=== PATIENT | female | born 1950 | race Hispanic/Latino ===

== ENCOUNTER 2024-12-14 16:52 | Emergency (ER) | payer OTHER ==
--- OUTSIDE RECORDS SUMMARY | 2024-12-14 16:57 | XMS REPORT | Continuity of Care Document ---
Author Name Unknown Address [address] [place] [address] Organization [facility] [place] Address [address] [place] [address] Care Team Providers Care Burial Agent Name Role Phone Navya Hdez Primary Care Physician [phone] oCrky Romero Attending Clinician Unavailable Martha Patel Attending Clinician Unavailable Navya Hdez L Attending Clinician Unavailable Benjamin Hernandez DPM Attending Clinician [phone] BENJAMIN HERNANDEZ Attending Clinician Unavail able Radiology Attending Clinician Unavailable RADIOLOGY Attending Clinician Unavailable Doctor Unassigned, [place] Attending Clinician U JASWINDER Benitez Attending Clinician [facility] Attending Clinician Jaswinder Mitchell MD Attending Clinician [phone] BENJAMIN HERNANDEZitting Clinician Unavailable NAVYA HDEZ Admitting Clinician Unavailable Payers Payer Name Policy Type Policy Number Effective Date Expirati on Date Source [employer] [employer] [place] [id number] 2014 00:00:00 Problems Condition Name Condition Details Condition Category Status Onset Date Resolution Date Last Treatment Date Treating Clinician Comments Source [id number] Stage 3a chronic kidney disease (CKD) Problem Common [facility] [id number] Body mass index [BMI] 40.0-44.9, adult Problem Common [facility] [id number] Morbid (severe) obesity due to excess calories Problem [facility] [id number] Mixed hyperlipid emia Problem [facility] [id number] Pain in left knee Problem [facility] [id number] Other chronic pain Problem [facility] Metabolic syndrome X Metabolic syndrome X Problem [facility] [id number] Obesity, morbid, BMI 40.0-49.9 Problem [facility] Hypertrigl yceridemia Hypertrigl yceridemia Problem [facility] Obese Obese Problem [facility] [id number] Osteoarthr itis of multiple joints, unspecifie d osteoarthr itis type Problem [facility] Hyperlipid emia Hyperlipid emia Problem [facility] [id number] White coat syndrome with diagnosis of hypertensi on Problem [facility] [id number] Pneumococc al vaccinatio n administer ed at current visit Problem [facility] [id number] History of anemia Problem [facility] [id number] History of colon polyps Problem [facility] [id number] +5th digit eff 05/29/20*Ch ronic kidney disease, stage III (moderate) Problem [facility] Elevated levels of transamina se & lactic acid dehydrogen ase Abnormal AST and ALT Problem [facility] Osteoarthr itis of knee Primary osteoarthr itis of right knee Problem [facility] Chronic fatigue syndrome Chronic fatigue Problem [facility] [id number] Hepatitis A antibody positive Problem [facility] 327051472 Prediabete s Problem [facility] [id number] Hypertensi ve chronic kidney disease with stage 1 through stage 4 chronic kidney disease, or unspecifie d chronic kidney disease Problem [facility] [id number] Fatty liver Problem [facility] [id number] Abnormal mammogram Problem [facility] Allergies, Adverse Reactions, Alerts Allergy Name Allergy Type Status Severity Reaction(s) Onset Date Inactive Date Treating Clinician Comments Source OTHER Allergy Active Med Rash 02-07 00:00: 00 [facility] OTHER Allergy Active Med Rash 02-07 00:00: 00 [facility] OTHER Allergy Active Med Rash 02-07 00:00: 00 [facility] OTHER Allergy Active Med Rash 02-07 00:00: 00 [facility] OTHER Allergy Active Med Rash 02-07 00:00: 00 [facility] OTHER Allergy Active Med Rash 02-07 00:00: 00 [facility] Other Propensi ty to adverse reaction s Active Rash 02-07 00:00: 00 Plastic Jim Alcaraz Latex Latex Active Unknown [facility] NO KNOWN ALLERGIE S Drug Class Active [facility] ALLERGIE S NOT ON FILE SYSTEMIC Active [facility] ALLERGIE S NOT ON FILE SYSTEMIC Active [facility] Social History Social Habit Start Date Stop Date Quantity Comments Source Gender identity 2023-11-20 15:39:33 Identifies as female gender (finding) Pete Murry [facility] Exposure to SARS-CoV-2 (event) Not sure [facility] History of Tobacco Use [facility] Sex Assigned At [facility] ASSERTION Possible [facility]marie [facility] Sexual orientation [facility] Smoking Status Start Date Stop Date Source Tobacco smoking consumption unknown [facility] c Never Smoker [facility] Medications Ordered Medication Name Filled Medication Name Start Date Stop Date Current Medication? Ordering Clinician Indication Dosage Frequency Signature (SIG) Comments Components Source Macrobid 100 MG Macrobid 100 MG 2023-08 014 00:00: 00 No 1{capsu le_with _food} BID Macrobid 100 MG ketoconazol e (NIZOral) 2 % cream ketoconazol e (NIZOral) 2 % cream 02-08 00:00: 00 02-08 00:00 :00 No APPLY CREAM TOPICALLY ONCE DAILY TO AFFECTED AREA Jim Alcaraz lisinopril- hydroCHLORO thiazide 20-25 MG tablet lisinopril- hydroCHLORO thiazide 20-25 MG tablet 02-07 09:54: 09 Yes 1{tbl} QD Take 1 tablet by mouth 1 time each day. Jim Alcaraz rosuvastati n (Crestor) 10 MG tablet rosuvastati n (Crestor) 10 MG tablet 02-07 09:54: 09 Yes 10mg QD Take 10 mg by mouth 1 time each day. Jim Alcaraz coenzyme Q-10 50 MG capsule coenzyme Q-10 50 MG capsule 02-07 09:54: 09 Yes Take by mouth. Jim Alcaraz omega-3 (Fish Oil) 500 MG capsule omega-3 (Fish Oil) 500 MG capsule 02-07 09:54: 09 Yes 500mg QD Take 500 mg by mouth 1 time each day. Jim Alcaraz psyllium (Metamucil) 28 % packet psyllium (Metamucil) 28 % packet 02-07 09:54: 09 Yes 1{packe t} Q.5D Take 1 packet by mouth in the morning and 1 packet in the evening. Mix and drink with at least 8 ounces of water or juice.. Jim Alcaraz calcium citrate-vit benavidez D 250-2.5 MG-MCG tablet calcium citrate-vit benavidez D 250-2.5 MG-MCG tablet 02-07 09:54: 09 Yes 1{tbl} Q.5D Take 1 tablet by mouth in the morning and 1 tablet in the evening. Jim Alcaraz TURMERIC-FI SH OIL PO TURMERIC-FI SH OIL PO 02-07 09:54: 09 Yes Take by mouth. Jim Alcaraz ketoconazol e (NIZOral) 2 % cream ketoconazol e (NIZOral) 2 % cream 02-07 00:00: 00 02-08 00:00 :00 No QD Apply topically 1 time each day. Jim Alcaraz Hyalgan 20 mg Hyalgan 20 mg 2019-08 00:00: 00 No 20mg [facility] Bupivicaine [place] Bupivicaine [place] 2019-08 015 00:00: 00 No 5mg [facility] Kenalog (Triamcinol one) Kenalog (Triamcinol one) 2020-1 0-15 00:00: 00 No 40mg [facility] CoQ-10 CoQ-10 No CoQ-10 Rosuvastati n Calcium 10 mg Rosuvastati n Calcium 10 mg No 1{table t} QD Rosuvastat in Calcium 10 mg Aspirin Adult Low Dose 81 MG Aspirin Adult Low Dose 81 MG No 1{table t} QD Aspirin Adult Low Dose 81 MG Immunizations Ordered Immunization Name Filled Immunization Name Date Status Comments Source SARS-COV-2 COVID-19 PFIZER VACCINE 2020-10-23 00:00:00 Completed [facility] SARS-COV-2 COVID-19 PFIZER VACCINE 2020-10-23 00:00:00 Completed [facility] SARS-COV-2 COVID-19 PFIZER VACCINE 2020-10-23 00:00:00 Completed [facility] SARS-COV-2 COVID-19 PFIZER VACCINE 2020-10-23 00:00:00 Completed [facility] SARS-COV-2 COVID-19 PFIZER VACCINE 2020-10-23 00:00:00 Completed [facility] SARS-COV-2 COVID-19 PFIZER VACCINE 2020-10-23 00:00:00 Completed [facility] SARS-COV-2 COVID-19 PFIZER VACCINE 2020-10-23 00:00:00 Completed [facility] SARS-COV-2 COVID-19 PFIZER VACCINE 2020-10-23 00:00:00 Completed [facility] SARS-COV-2 COVID-19 PFIZER VACCINE 2020-10-23 00:00:00 Completed [facility] SARS-COV-2 COVID-19 PFIZER VACCINE 2020-10-23 00:00:00 Completed [facility] SARS-COV-2 COVID-19 PFIZER VACCINE 2020-10-23 00:00:00 Completed [facility] SARS-COV-2 COVID-19 PFIZER VACCINE 2020-10-23 00:00:00 Completed [facility] SARS-COV-2 COVID-19 PFIZER VACCINE 2020-10-23 00:00:00 Completed [facility] SARS-COV-2 COVID-19 PFIZER VACCINE 2020-09-23 00:00:00 Completed [facility] SARS-COV-2 COVID-19 PFIZER VACCINE 2020-09-23 00:00:00 Completed [facility] SARS-COV-2 COVID-19 PFIZER VACCINE 2020-09-23 00:00:00 Completed [facility] SARS-COV-2 COVID-19 PFIZER VACCINE 2020-09-23 00:00:00 Completed [facility] SARS-COV-2 COVID-19 PFIZER VACCINE 2020-09-23 00:00:00 Completed [facility] SARS-COV-2 COVID-19 PFIZER VACCINE 2020-09-23 00:00:00 Completed [facility] SARS-COV-2 COVID-19 PFIZER VACCINE 2020-09-23 00:00:00 Completed [facility] SARS-COV-2 COVID-19 PFIZER VACCINE 2020-09-23 00:00:00 Completed [facility] SARS-COV-2 COVID-19 PFIZER VACCINE 2020-09-23 00:00:00 Completed [facility] SARS-COV-2 COVID-19 PFIZER VACCINE 2020-09-23 00:00:00 Completed [facility] SARS-COV-2 COVID-19 PFIZER VACCINE 2020-09-23 00:00:00 Completed [facility] SARS-COV-2 COVID-19 PFIZER VACCINE 2020-09-23 00:00:00 Completed [facility] SARS-COV-2 COVID-19 PFIZER VACCINE 2020-09-23 00:00:00 Completed [facility] Pneumovax (PPSV23) Pneumovax (PPSV23) 2018-07-13 09:03:00 Completed [facility] Pneumovax (PPSV23) Pneumovax (PPSV23) 2018-07-13 09:03:00 Completed [facility] Pneumovax (PPSV23) Pneumovax (PPSV23) 2018-07-13 09:03:00 Completed [facility] Pneumovax (PPSV23) Pneumovax (PPSV23) 2018-07-13 09:03:00 Completed [facility] Pneumovax (PPSV23) Pneumovax (PPSV23) 2018-07-13 09:03:00 Completed [facility] Pneumovax (PPSV23) Pneumovax (PPSV23) 2018-07-13 09:03:00 Completed [facility] Pneumovax (PPSV23) Pneumovax (PPSV23) 2018-07-13 09:03:00 Completed [facility] Pneumovax (PPSV23) Pneumovax (PPSV23) 2018-07-13 09:03:00 Completed [facility] Pneumovax (PPSV23) Pneumovax (PPSV23) 2018-07-13 09:03:00 Completed [facility] Pneumovax (PPSV23) Pneumovax (PPSV23) 2018-07-13 09:03:00 Completed [facility] Pneumovax Pneumovax 2018-07-13 00:00:00 Completed [facility] SARS-COV-2 COVID-19 PFIZER VACCINE Unknown Completed [facility] SARS-COV-2 COVID-19 PFIZER VACCINE Unknown Completed [facility] Pneumovax (PPSV23) Pneumovax (PPSV23) Unknown Completed [facility] Pneumovax (PPSV23) Pneumovax (PPSV23) Unknown Completed [facility] Pneumovax (PPSV23) Pneumovax (PPSV23) Unknown Completed [facility] Pneumovax (PPSV23) Pneumovax (PPSV23) Unknown Completed [facility] Pneumovax (PPSV23) Pneumovax (PPSV23) Unknown Completed [facility] Pneumovax (PPSV23) Pneumovax (PPSV23) Unknown Completed [facility] Pneumovax (PPSV23) Pneumovax (PPSV23) Unknown Completed [facility] Pneumovax (PPSV23) Pneumovax (PPSV23) Unknown Completed [facility] Pneumovax (PPSV23) Pneumovax (PPSV23) Unknown Completed [facility] Vital Signs Vital Name Observation Time Observation Value Comments S ource height 2024-10-12 08:45:00 60.00 [in_i] Com [facility] weight 2024-10-12 08:45:00 203 [lb_av] Comm on [facility] temperature 2024-10-12 08:45:00 97.3 [degF] Com [facility] bmi 2024-10-12 08:45:00 39.64 kg/m2 Comm on [facility] oximetry 2024-10-12 08:45:00 98 % Commo n [facility] heart rate 2024-10-12 08:45:00 63 /min Commo n [facility] respiratory rate 2024-10-12 08:45:00 18 /min [facility] blood pressure systolic 2024-10-12 08:45:00 128 mm[Hg] [facility] blood pressure diastolic 2024-10-12 08:45:00 74 mm[Hg] [facility] height 2024-06-11 09:00:00 60.00 [in_i] Com [facility] weight 2024-06-11 09:00:00 202.0 [lb_av] Co mmon [facility] temperature 2024-06-11 09:00:00 97.3 [degF] Com [facility] bmi 2024-06-11 09:00:00 39.45 kg/m2 Comm on [facility] oximetry 2024-06-11 09:00:00 95 % Commo n [facility] respiratory rate 2024-06-11 09:00:00 17 /min [facility] blood pressure systolic 2024-06-11 09:00:00 128 mm[Hg] [facility] blood pressure diastolic 2024-06-11 09:00:00 69 mm[Hg] Common [facility] height 2024-06-11 09:00:00 60.00 [in_i] Com [facility] weight 2024-06-11 09:00:00 202.0 [facility]lb[facility]11 09:00:00 97.3 [degF] Com [facility] bmi 2024-06-11 09:00:00 39.45 kg/m2 Comm on [facility] oximetry 2024-06-11 09:00:00 95 % Commo n [facility] respiratory rate 2024-06-11 09:00:00 17 /min [facility] blood pressure systolic 2024-06-11 09:00:00 128 mm[Hg] Common [facility] blood pressure diastolic 2024-06-11 09:00:00 69 mm[Hg] Common [facility] height 2024-06-11 09:00:00 60.00 [in_i] Com [facility] weight 2024-06-11 09:00:00 202.0 [lb_av] Co [facility] temperature 2024-06-11 09:00:00 97.3 [degF] Com [facility] bmi 2024-06-11 09:00:00 39.45 kg/m2 Comm on [facility] oximetry 2024-06-11 09:00:00 95 % Commo n [facility] respiratory rate 2024-06-11 09:00:00 17 /min Common [facility] blood pressure systolic 2024-06-11 09:00:00 128 mm[Hg] [facility] blood pressure diastolic 2024-06-11 09:00:00 69 mm[Hg] [facility] height 2024-06-11 09:00:00 60.00 [in_i] Com [facility] weight 2024-06-11 09:00:00 202.0 [lb_av] Co mmon [facility] temperature 2024-06-11 09:00:00 97.3 [degF] Com [facility] bmi 2024-06-11 09:00:00 39.45 kg/m2 Comm on [facility] oximetry 2024-06-11 09:00:00 95 % Commo n [facility] respiratory rate 2024-06-11 09:00:00 17 /min Common [facility] blood pressure systolic 2024-06-11 09:00:00 128 mm[Hg] Common [facility] blood pressure diastolic 2024-06-11 09:00:00 69 mm[Hg] [facility] height 2024-02-08 08:40:00 60.00 [in_i] Com [facility] weight 2024-02-08 08:40:00 211.4 [lb_av] Co [facility] temperature 2024-02-08 08:40:00 96.2 [degF] Com [facility] bmi 2024-02-08 08:40:00 41.28 kg/m2 Comm on [facility] oximetry 2024-02-08 08:40:00 97 % Commo n [facility] blood pressure systolic 2024-02-08 08:40:00 134 mm[Hg] Common [facility] blood pressure diastolic 2024-02-08 08:40:00 74 mm[Hg] Common [facility] height 2023-10-11 08:50:00 60.00 [in_i] Com [facility] weight 2023-10-11 08:50:00 215 [lb_av] Comm on [facility] temperature 2023-10-11 08:50:00 97.5 [degF] Com [facility] bmi 2023-10-11 08:50:00 41.98 kg/m2 Comm on [facility] oximetry 2023-10-11 08:50:00 97 % Commo n [facility] blood pressure systolic 2023-10-11 08:50:00 130 mm[Hg] [facility] blood pressure diastolic 2023-10-11 08:50:00 74 mm[Hg] [facility] height 2023-06-09 09:20:00 60.00 [in_i] Com [facility] weight 2023-06-09 09:20:00 212.0 [lb_av] Co [facility] temperature 2023-06-09 09:20:00 97.2 [degF] Com [facility] bmi 2023-06-09 09:20:00 41.4 kg/m2 Commo n [facility] oximetry 2023-06-09 09:20:00 98 % Commo n [facility] respiratory rate 2023-06-09 09:20:00 18 /min [facility] blood pressure systolic 2023-06-09 09:20:00 130 mm[Hg] [facility] blood pressure diastolic 2023-06-09 09:20:00 71 mm[Hg] [facility] height 2023-06-09 09:20:00 60.00 [in_i] Com [facility] weight 2023-06-09 09:20:00 212.0 [lb_av] Co [facility] temperature 2023-06-09 09:20:00 97.2 [degF] Com [facility] bmi 2023-06-09 09:20:00 41.4 kg/m2 Commo n [facility] oximetry 2023-06-09 09:20:00 98 % Commo n [facility] respiratory rate 2023-06-09 09:20:00 18 /min [facility] blood pressure systolic 2023-06-09 09:20:00 130 mm[Hg] [facility] blood pressure diastolic 2023-06-09 09:20:00 71 mm[Hg] Common [facility] height 2023-02-07 08:40:00 60.00 [in_i] Com [facility] weight 2023-02-07 08:40:00 208 [lb_av] Comm on [facility] temperature 2023-02-07 08:40:00 96.2 [degF] Com [facility] bmi 2023-02-07 08:40:00 40.62 kg/m2 Comm on [facility] oximetry 2023-02-07 08:40:00 97 % Commo n [facility] respiratory rate 2023-02-07 08:40:00 16 /min [facility] blood pressure systolic 2023-02-07 08:40:00 134 mm[Hg] Common [facility] blood pressure diastolic 2023-02-07 08:40:00 72 mm[Hg] [facility] height 2022-09-30 09:00:00 60.00 [in_i] Com [facility] weight 2022-09-30 09:00:00 203.4 [lb_av] Co mmon [facility] temperature 2022-09-30 09:00:00 97.6 [degF] Com [facility] bmi 2022-09-30 09:00:00 39.72 kg/m2 Comm on [facility] oximetry 2022-09-30 09:00:00 100 % Commo n [facility] respiratory rate 2022-09-30 09:00:00 17 /min [facility] blood pressure systolic 2022-09-30 09:00:00 121 mm[Hg] [facility] blood pressure diastolic 2022-09-30 09:00:00 73 mm[Hg] Common [facility] height 2022-07-16 10:20:00 60.00 [in_i] Com [facility] weight 2022-07-16 10:20:00 199 [lb_av] Comm on [facility] bmi 2022-07-16 10:20:00 38.86 kg/m2 Comm on [facility] height 2022-06-15 16:00:00 60.00 [in_i] Com [facility] weight 2022-06-15 16:00:00 199.9 [lb_av] Co [facility] temperature 2022-06-15 16:00:00 97.0 [degF] Com [facility] bmi 2022-06-15 16:00:00 39.04 kg/m2 Comm on [facility] oximetry 2022-06-15 16:00:00 99 % Commo n [facility] respiratory rate 2022-06-15 16:00:00 17 /min [facility] blood pressure systolic 2022-06-15 16:00:00 148 mm[Hg] Common [facility] blood pressure diastolic 2022-06-15 16:00:00 72 mm[Hg] [facility] height 2022-06-15 16:20:00 60.00 [in_i] Com [facility] weight 2022-06-15 16:20:00 199.9 [lb_av] Co on [facility] temperature 2022-06-15 16:20:00 97.0 [degF] Com [facility] bmi 2022-06-15 16:20:00 39.04 kg/m2 Comm on [facility] oximetry 2022-06-15 16:20:00 99 % Commo n [facility] blood pressure systolic 2022-06-15 16:20:00 148 mm[Hg] Common [facility] blood pressure diastolic 2022-06-15 16:20:00 72 mm[Hg] [facility] height 2021-11-23 09:20:00 60.00 [in_i] Com [facility] weight 2021-11-23 09:20:00 204.2 [lb_av] Co mmon [facility] temperature 2021-11-23 09:20:00 97.2 [degF] Com [facility] bmi 2021-11-23 09:20:00 39.88 kg/m2 Comm on [facility] oximetry 2021-11-23 09:20:00 96 % Commo n [facility] respiratory rate 2021-11-23 09:20:00 16 /min [facility] blood pressure systolic 2021-11-23 09:20:00 114 mm[Hg] [facility] blood pressure diastolic 2021-11-23 09:20:00 68 mm[Hg] Common [facility] height 2021-10-27 09:40:00 60.00 [in_i] Com [facility] weight 2021-10-27 09:40:00 204 [lb_av] Comm on [facility] temperature 2021-10-27 09:40:00 97.6 [degF] Com [facility] bmi 2021-10-27 09:40:00 39.84 kg/m2 Comm on [facility] oximetry 2021-10-27 09:40:00 97 % Commo n [facility] respiratory rate 2021-10-27 09:40:00 18 /min Common [facility] blood pressure systolic 2021-10-27 09:40:00 117 mm[Hg] [facility] blood pressure diastolic 2021-10-27 09:40:00 69 mm[Hg] [facility] height 2021-08-13 08:20:00 60.00 [in_i] Com mon [facility] weight 2021-08-13 08:20:00 209 [lb_av] Comm on [facility] temperature 2021-08-13 08:20:00 97.2 [degF] Com mon [facility] bmi 2021-08-13 08:20:00 40.81 kg/m2 Comm on [facility] oximetry 2021-08-13 08:20:00 99 % Commo n [facility] blood pressure systolic 2021-08-13 08:20:00 130 mm[Hg] [facility] blood pressure diastolic 2021-08-13 08:20:00 68 mm[Hg] Common [facility] Procedures Procedure Date / Time Performed Performing Clinician Source BI SCREENING TOMOSYNTHESIS BILATERAL 2023-08-04 14:35:55 Corky Romero [facility] DEXA AXIAL (HIP AND SPINE) 2023-08-04 14:18:17 Corky Romero [facility] XR FOOT <3 VW RIGHT 2022-11-18 15:53:59 [place] [facility] XR HEEL 2+ VW RIGHT 2022-11-18 15:53:59 [facility] ASSIGNMENT OF BENEFITS 2022-11-18 15:16:35 Docto r Unassigned, [place] [facility] MR ANKLE RIGHT WO CONTRAST 2022-09-07 15:17:00 Benjamin Hernandez [facility] XR FOOT 3+ VW BILATERAL 2022-08-31 18:06:01 Araceli Hernandez [facility] XR HEEL 2+ VW BILATERAL 2022-08-31 18:06:01 Araceli Hernandez [facility] ASSIGNMENT OF BENEFITS 2022-08-31 17:33:30 Docto r Unassigned, [place] [facility] AUTHORIZATION FOR RELEASE OF PHI 2022-08-30 06:01:00 Doctor Unassigned, [place] [facility] XR FOOT <3 VW RIGHT 2022-06-17 16:13:24 Navya Hdez U [facility] ASSIGNMENT OF BENEFITS 2022-06-17 15:49:41 Docto r Unassigned, [place] [facility] BI DIAGNOSTIC TOMOSYNTHESIS LEFT 2022-05-25 14:02:35 Requisition, Paper [facility] CONSENT/REFUSAL FOR DIAGNOSIS AND TREATMENT 2022-05-25 13:28:25 Doctor Unassigned, [place] [facility] ASSIGNMENT OF BENEFITS 2022-05-25 13:27:51 Docto r Unassigned, [place] [facility] DEXA AXIAL (HIP AND SPINE) 2021-10-01 19:22:58 Self Referred, Facility Npi [facility] Encounters Start Date/Time End Date/Time Encounter Type Admission Type Attending Clinicians Care Facility Care Department Encounter ID Source 2024-09-11 13:00:00 Outpatient NickSegundoh STLMLC STLMLC [id number] [facility] 2023-06-08 13:35:00 Outpatient NickCorky STLMLC STLMLC [id number] [facility] 2022-10-05 09:31:01 Outpatient Amanda Martha STLMLC STLMLC [id number] [facility] 2022-09-29 09:11:00 Outpatient Amanda Martha STLMLC STLMLC [id number] [facility] 2022-09-22 13:19:00 Outpatient Amanda Martha STLMLC STLMLC [id number] [facility] 2022-07-14 11:23:00 Outpatient Navya Hdez STLMLC STLMLC [id number] [facility] 2022-07-05 10:26:02 Outpatient Navya Hdez STLMLC STLMLC [id number] [facility] 2022-06-11 08:14:00 Outpatient Navya Hdez STLMLC STLMLC [id number] [facility] 2022-04-16 09:36:01 Outpatient Hdez, Na STLMLC STLMLC [id number] [facility] 2022-03-08 14:51:00 Outpatient Hdez, Na STLMLC STLMLC [id number] [facility] 2021-10-27 09:15:01 Outpatient Hdez, Na STLMLC STLMLC [id number] [facility] 2021-10-26 09:58:00 Outpatient Hdez, Na STLMLC STLMLC [id number] [facility] 2021-09-23 14:28:59 Outpatient Hdez, Na STLMLC STLMLC [id number] [facility] 2021-09-23 14:24:20 Outpatient Hdez, Na STLMLC STLMLC [id number] [facility] 2021-09-23 13:15:23 Outpatient Hdez, Na STLMLC STLMLC [id number] [facility] 2021-09-23 12:42:27 Outpatient Hdez, Na STLMLC STLMLC [id number] [facility] 2021-09-23 12:39:45 Outpatient Hdez, Na STLMLC STLMLC [id number] [facility] 2021-09-23 12:16:10 Outpatient Hdez, Na STLMLC STLMLC [id number] [facility] 2021-09-23 12:13:31 Outpatient Hdez, Na STLMLC STLMLC [id number] [facility] 2021-09-23 12:12:46 Outpatient Hdez, Na STLMLC STLMLC [id number] [facility] 2021-09-23 12:02:50 Outpatient Hdez, Na STLMLC STLMLC [id number] [facility] 2021-09-23 12:02:33 Outpatient Hdez, Na STLMLC STLMLC [id number] [facility] 2021-09-23 11:55:37 Outpatient Hdez, Na STLMLC STLMLC [id number] [facility] 2021-09-23 11:54:04 Outpatient Hdez, Na STLMLC STLMLC [id number] [facility] 2021-09-23 11:50:47 Outpatient Hdez, Na STLMLC STLMLC [id number] [facility] 2021-09-23 11:43:48 Outpatient Hdez, Na STLMLC STLMLC [id number] [facility] 2021-09-23 11:22:56 Outpatient Hdez, Na STLMLC STLMLC [id number] [facility] 2021-09-23 11:15:43 Outpatient Hdez, Na STLMLC STLMLC [id number] [facility] 2024-10-12 00:00:00 2024-10-12 00:00:00 OFFICE VISIT ESTAB PT LEVEL 4 STLMLC STLMLC [id number] [facility] 2024-09-11 00:00:00 2024-09-11 00:00:00 (TEL) STLMLC STLMLC [id number] [facility] 2024-09-02 00:00:00 2024-09-02 00:00:00 (TEL) STLMLC STLMLC [id number] [facility] 2024-06-27 11:20:00 2024-06-27 11:30:00 [facility] 1.2.840.114 350.1.13.70 8.2.7.2.686 [id number] Jim adler [facility] 2024-06-27 09:52:25 2024-06-27 11:00:28 Outpatient Elective SELBSTBENJAMIN MHEOUT [id number] [facility] 2024-06-11 00:00:00 2024-06-11 00:00:00 OFFICE VISIT ESTAB PT LEVEL 4 [facility] [id number] [facility] 2024-06-11 00:00:00 2024-06-11 00:00:00 SUB ANNUAL [facility] WELLNESS VISIT [facility] [id number] [facility] 2024-05-28 00:00:00 2024-05-28 00:00:00 (TEL) [facility] [id number] [facility] 2024-04-04 09:45:34 2024-04-04 10:48:36 Outpatient Elective SELBENJAMIN CANNON EOUT [id number] [facility] 2024-04-04 10:10:00 2024-04-04 10:20:00 Office Visit Benjamin [facility] 1..840.114 350.1.13.70 8.2.7.2.686 [id number] Jim adler [facility] 2024-02-09 00:00:00 2024-03-11 23:47:50 Orders Only Benjamin Hernandez [facility] 1..840.114 350.1.13.70 8.2.7.2.686 [id number] Jim adler [facility] 2024-02-09 00:00:00 2024-02-09 16:50:28 Refill Benjamin Hernandez [facility] 1..840.114 350.1.13.70 8.2.7.2.686 [id number] Jim adler [facility] 2024-02-08 00:00:00 2024-02-09 14:28:43 Refill BarbarapingBenjamin [facility] 1.2.840.114 350.1.13.70 8.2.7.2.686 [id number] Jim Murry [facility] 2024-02-08 09:50:00 2024-02-08 10:59:20 Office Visit BarbarapingBenjamin [facility] 1.2840.114 350.1.13.70 8.2.7.2.686 [id number] Jim adler [facility] 2024-02-08 09:47:16 2024-02-08 10:59:20 Outpatient Elective BENJAMIN HERNANDEZ MHEOUT [facility] [id number] [facility] 2024-02-08 00:00:00 2024-02-08 00:00:00 OFFICE VISIT ESTAB PT LEVEL 4 [facility] STLMLC [id number] [facility] 2023-11-01 00:00:00 2023-11-01 00:00:00 (TEL) STLMLC STLMLC [id number] [facility] 2023-10-11 00:00:00 2023-10-11 00:00:00 OFFICE VISIT ESTAB PT LEVEL 4 STLMLC STLMLC [id number] [facility] 2023-08-04 07:54:12 2023-08-04 23:59:00 Hospital Encounter Radiology [facility] 1.2840.114 350.1.13.10 4.2.7.2.686 [id number] [facility] 2023-08-04 07:54:04 2023-08-04 23:59:00 Outpatient R RADIOLOGY [facility] [id number] [facility] 2023-08-04 07:54:04 2023-08-04 23:59:00 Hospital Encounter Radiology [facility] 1.2.840.114 350.1.13.10 4.2.7.2.686 [id number] [facility] 2023-06-09 00:00:00 2023-06-09 00:00:00 OFFICE VISIT ESTAB PT LEVEL 4 STLMLC STLMLC [id number] [facility] 2023-06-09 00:00:00 2023-06-09 00:00:00 SUB ANNUAL [facility] WELLNESS VISIT STLMLC STLMLC [id number] [facility] 2023-02-08 00:00:00 2023-02-08 00:00:00 (TEL) STLMLC STLMLC [id number] [facility] 2023-02-07 00:00:00 2023-02-07 00:00:00 OFFICE VISIT ESTAB PT LEVEL 4 STLMLC STLMLC [id number] [facility] 2023-01-05 00:00:00 2023-01-05 00:00:00 (TEL) STLMLC STLMLC [id number] [facility] 2022-12-28 00:00:00 2022-12-28 00:00:00 (TEL) STLMLC STLMLC [id number] [facility] 2022-11-18 10:17:40 2022-11-18 23:59:00 Outpatient R RADIOLOGY [facility] [id number] [facility] 2022-11-18 10:17:40 2022-11-18 23:59:00 Hospital Encounter Radiology [facility] 1.2.840.114 350.1.13.10 4.2.7.2.686 [id number] [facility] 2022-11-18 00:00:00 2022-11-18 00:00:00 Orders Only Doctor Unassigned, [place] [facility] 1.2.840.114 350.1.13.10 4.2.7.2.686 [id number] [facility] 2022-10-05 00:00:00 2022-10-05 00:00:00 (TEL) STLMLC STLMLC [id number] [facility] 2022-09-30 00:00:00 2022-09-30 00:00:00 OFFICE VISIT ESTAB PT LEVEL 4 STLMLC STLMLC [id number] [facility] 2022-09-22 00:00:00 2022-09-22 00:00:00 (TEL) STLMLC STLMLC [id number] [facility] 2022-09-17 00:00:00 2022-09-17 00:00:00 (TEL) STLMLC STLMLC [id number] [facility] 2022-09-14 13:40:52 2022-09-14 23:59:00 Outpatient R JASWINDER REYES [facility] [id number] [facility] 2022-09-14 14:15:00 2022-09-14 14:30:00 Pier Runner Visit Pob, Adc Lab Main Jaswinder Reyes [facility] 1..840.114 350.1.13.10 4.2.7.2.686 [id number] [facility] 2022-09-07 08:29:10 2022-09-07 23:59:00 Outpatient R RADIOLOGY [facility] [id number] [facility] 2022-09-07 08:29:10 2022-09-07 23:59:00 Hospital Encounter Radiology [facility] 1.2.840.114 350.1.13.10 4.2.7.2.686 [id number] [facility] 2022-08-31 11:34:08 2022-08-31 23:59:00 Outpatient R RADIOLOGY [facility] [id number] [facility] 2022-08-31 11:34:08 2022-08-31 23:59:00 Hospital Encounter Radiology [facility] 1.2840.114 350.1.13.10 4.2.7.2.686 [id number] [facility] 2022-08-31 00:00:00 2022-08-31 00:00:00 Orders Only Doctor Unassigned, [place] [facility] 1.2.840.114 350.1.13.10 4.2.7.2.686 [id number] [facility] 2022-08-30 00:00:00 2022-08-30 00:00:00 Orders Only Doctor Unassigned, [place] [facility] 1.2.840.114 350.1.13.10 4.2.7.2.686 [id number] [facility] 2022-07-16 00:00:00 2022-07-16 00:00:00 OL DIG E[facility]M [facility] [id number] [facility] 2022-07-05 00:00:00 2022-07-05 00:00:00 (TEL) [facility] [id number] [facility] 2022-06-17 10:51:24 2022-06-17 23:59:00 Outpatient R RADIOLOGY [facility] [id number] [facility] 2022-06-17 10:51:24 2022-06-17 23:59:00 Hospital Encounter Radiology [facility] 1.2840.114 350.1.13.10 4.2.7.2.686 [id number] [facility] 2022-06-17 00:00:00 2022-06-17 00:00:00 Orders Only Doctor Unassigned, [place] [facility] 1.2.840.114 350.1.13.10 4.2.7.2.686 [id number] [facility] 2022-06-15 00:00:00 2022-06-15 00:00:00 SUB ANNUAL [facility]ISIT [facility] [id number] [facility] 2022-06-15 00:00:00 2022-06-15 00:00:00 OFFICE VISIT EST PT LEVEL 3 STLMLC STLMLC [id number] [facility] 2022-05-25 08:26:46 2022-05-25 23:59:00 Hospital Encounter Radiology [facility] 1.2.840.114 350.1.13.10 4.2.7.2.686 [id number] [facility] 2022-05-25 08:26:27 2022-05-25 23:59:00 Outpatient R RADIOLOGY [facility] [id number] [facility] 2022-05-25 08:26:27 2022-05-25 23:59:00 Hospital Encounter Radiology [facility] 1.2.840.114 350.1.13.10 4.2.7.2.686 [id number] [facility] 2022-03-25 00:00:00 2022-03-25 00:00:00 (TEL) STLMLC STLMLC [id number] [facility] 2022-02-12 00:00:00 2022-02-12 00:00:00 (TEL) STLMLC STLMLC [id number] [facility] 2022-01-29 07:48:32 2022-01-29 23:59:00 Outpatient R RADIOLOGY [facility] [id number] [facility] 2022-01-29 07:48:32 2022-01-29 23:59:00 Hospital Encounter Radiology [facility] 1.2.840.114 350.1.13.10 4.2.7.2.686 [id number] [facility] 2021-11-23 00:00:00 2021-11-23 00:00:00 OFFICE VISIT ESTAB PT LEVEL 4 STLMLC STLMLC [id number] [facility] 2021-10-28 00:00:00 2021-10-28 00:00:00 (TEL) STLMLC STLMLC [id number] [facility] 2021-10-27 00:00:00 2021-10-27 00:00:00 OFFICE VISIT ESTAB PT LEVEL 2 STLMLC STLMLC [id number] [facility] 2021-10-01 12:15:36 2021-10-01 23:59:00 Outpatient R RADIOLOGY [facility] [id number] [facility] 2021-10-01 12:15:36 2021-10-01 23:59:00 Hospital Encounter Radiology [facility] 1.2.840.114 350.1.13.10 4.2.7.2.686 [id number] [facility] 2021-08-13 00:00:00 2021-08-13 00:00:00 OFFICE VISIT ESTAB PT LEVEL 4 STLMLC STLMLC [id number] [facility] 2021-02-15 00:00:00 2021-02-15 00:00:00 Outpatient STLMLC STLMLC [id number] [facility] 2021-02-12 00:00:00 2021-02-12 00:00:00 Outpatient STLMLC STLMLC [id number] [facility] 2021-02-12 00:00:00 2021-02-12 00:00:00 Outpatient STLMLC STLMLC [id number] [facility] 2020-11-10 00:00:00 2020-11-10 00:00:00 Outpatient STLMLC STLMLC [id number] [facility] 2020-09-01 00:00:00 2020-09-01 00:00:00 Outpatient STLMLC STLMLC [id number] [facility] 2020-08-25 00:00:00 2020-08-25 00:00:00 Outpatient STLMLC STLMLC [id number] [facility] 2020-08-12 00:00:00 2020-08-12 00:00:00 Outpatient STLMLC STLMLC [id number] [facility] 2020-08-12 00:00:00 2020-08-12 00:00:00 Outpatient STLMLC STLMLC [id number] [facility] 2020-07-30 00:00:00 2020-07-30 00:00:00 Outpatient STLMLC STLMLC [id number] [facility] 2020-07-18 00:00:00 2020-07-18 00:00:00 Outpatient STLMLC STLMLC [id number] [facility] 2020-07-07 00:00:00 2020-07-07 00:00:00 Outpatient STLMLC STLMLC [id number] [facility] 2020-06-19 00:00:00 2020-06-19 00:00:00 Outpatient STLMLC STLMLC [id number] [facility] 2020-06-17 00:00:00 2020-06-17 00:00:00 Outpatient STLMLC STLMLC [id number] [facility] 2020-06-12 00:00:00 2020-06-12 00:00:00 Outpatient STLMLC STLMLC [id number] [facility] 2020-05-27 00:00:00 2020-05-27 00:00:00 Outpatient STLMLC STLMLC [id number] [facility] 2020-05-07 08:20:00 2020-05-07 08:20:[address] [facility] [id number] [facility] 2020-04-07 00:36:00 2020-04-07 00:36:[address] [facility] [id number] [facility] 2020-04-07 00:35:00 2020-04-07 00:35:[address] [facility] [id number] [facility] 2020-04-04 13:20:00 2020-04-04 13:20:00 [facility] [facility] [id number] [facility] 2020-04-04 13:00:00 2020-04-04 13:00:00 [facility] [id number] [facility] 2019-07-17 11:20:00 2019-07-17 11:20:[address] [facility] [id number] [facility] 2019-07-17 09:49:00 2019-07-17 09:49:[address] [facility] [id number] [facility] 2019-07-06 15:45:00 2019-07-06 15:45:00 [address] [facility] [id number] [facility] 2019-04-11 08:20:00 2019-04-11 08:20:[address] [facility] [id number] [facility] 2018-10-12 08:15:00 2018-10-12 08:15:[address] [facility] [id number] [facility] 2018-07-13 08:15:00 2018-07-13 08:15:[address] [facility] [id number] [facility] 2018-05-25 09:52:00 2018-05-25 09:52:[address] [facility] [id number] [facility] 2018-05-22 17:46:00 2018-05-22 17:46:[address] [facility] [id number] [facility] 2018-04-14 08:15:00 2018-04-14 08:15:[address] [facility] [id number] [facility] 2018-02-13 08:30:00 2018-02-13 08:30:[facility] [id number] [facility] Results Test Description Test Time Test Comments Results Result Co mments Source INDICATED URINE [id number] 00:00:00* Test Item Value Reference Range Interpretation Comme nts NUCLEATED RBCS (test code = 75674-3) 0.0 /100 WBC'S See_Comment [Automated message] The system which generated this result transmitted reference range: 0.0 /100 WBC'S. The reference range was not used to interpret this result as normal/abnormal. ABSOLUTE EOSINOPHILS (test code = 54054-9) 0.15 K/UL See_Comment [Automated message] The system which generated this result transmitted reference range: 0.00-0.50 K/UL. The reference range was not used to interpret this result as normal/abnormal. ABSOLUTE LYMPHOCYTES (test code = 64377-6) 2.51 K/UL See_Comment [Automated message] The system which generated this result transmitted reference range: 1.00-4.00 K/UL. The reference range was not used to interpret this result as normal/abnormal. ABSOLUTE MONOCYTES (test code = 13890-2) 0.40 K/UL See_Comment [Automated message] The system which generated this result transmitted reference range: 0.20-1.00 K/UL. The reference range was not used to interpret this result as normal/abnormal. ABSOLUTE NEUTROPHILS (test code = 73413-5) 2.70 K/UL See_Comment [Automated message] The system which generated this result transmitted reference range: 1.50-7.50 K/UL. The reference range was not used to interpret this result as normal/abnormal. BASOPHILS (test code = 89252-4) 0.9 % EOSINOPHILS (test code = 55817-5) 2.6 % HEMATOCRIT (test code = 90946-0) 43.6 % See_Comment [Automated message] The system which generated this result transmitted reference range: 34.0-45.0 %. The reference range was not used to interpret this result as normal/abnormal. HEMOGLOBIN (test code = 718-7) 14.7 G/DL See_Comment [Automated message] The system which generated this result transmitted reference range: 11.5-15.5 G/DL. The reference range was not used to interpret this result as normal/abnormal. LYMPHOCYTES (test code = 84952-6) 43.1 % MCH (test code = 07218-7) 32.5 PG See_Comment [Automated message] The system which generated this result transmitted reference range: 25.0-33.0 PG. The reference range was not used to interpret this result as normal/abnormal. MCHC (test code = 27601-2) 33.7 G/DL See_Comment [Automated message] The system which generated this result transmitted reference range: 31.0-36.0 G/DL. The reference range was not used to interpret this result as normal/abnormal. MCV (test code = 62205-6) 96.5 fL See_Comment [Automated message] The system which generated this result transmitted reference range: 80.0-99.0 fL. The reference range was not used to interpret this result as normal/abnormal. MONOCYTES (test code = 68008-4) 6.9 % NEUTROPHILS (test code = 92127-9) 46.3 % PLATELET COUNT (test code = 56583-2) 238 K/UL See_Comment [Automated message] The system which generated this result transmitted reference range: 130-400 K/UL. The reference range was not used to interpret this result as normal/abnormal. RBC (test code = 13312-3) 4.52 M/UL See_Comment [Automated message] The system which generated this result transmitted reference range: 3.80-5.40 M/UL. The reference range was not used to interpret this result as normal/abnormal. RDW (test code = 41219-6) 13.0 % See_Comment [Automated message] The system which generated this result transmitted reference range: 11.5-15.0 %. The reference range was not used to interpret this result as normal/abnormal. WBC (test code = 63981-0) 5.8 K/UL See_Comment [Automated message] The system which generated this result transmitted reference range: 3.5-11.0 K/UL. The reference range was not used to interpret this result as normal/abnormal. HEMOGLOBIN A1c (test code = 4548-4) 6.1 % See_Comment H [Automated message] The system which generated this result transmitted reference range: 4.2-5.6 %. The reference range was not used to interpret this result as normal/abnormal. CALC LDL CHOL (test code = 72458-0) 73 MG/DL See_Comment [Automated message] The system which generated this result transmitted reference range: <100 MG/DL. The reference range was not used to interpret this result as normal/abnormal. CHOLESTEROL (test code = 2093-3) 130 MG/DL See_Comment [Automated message] The system which generated this result transmitted reference range: <200 MG/DL. The reference range was not used to interpret this result as normal/abnormal. HDL CHOLESTEROL (test code = 2085-9) 36 MG/DL See_Comment L [Automated message] The system which generated this result transmitted reference range: >39 MG/DL. The reference range was not used to interpret this result as normal/abnormal. RISK RATIO LDL/HDL (test code = 61631-5) 2.03 RATIO See_Comment [Automated message] The system which generated this result transmitted reference range: <3.22 RATIO. The reference range was not used to interpret this result as normal/abnormal. TRIGLYCERIDES (test code = 2571-8) 130 MG/DL See_Comment [Automated message] The system which generated this result transmitted reference range: <150 MG/DL. The reference range was not used to interpret this result as normal/abnormal. ALBUMIN (test code = 1751-7) 4.2 G/DL See_Comment [Automated message] The system which generated this result transmitted reference range: 3.5-5.2 G/DL. The reference range was not used to interpret this result as normal/abnormal. ALKALINE PHOSPHATASE (test code = 6768-6) 64 U/L See_Comment [Automated message] The system which generated this result transmitted reference range: 40-142 U/L. The reference range was not used to interpret this result as normal/abnormal. BILIRUBIN, TOTAL (test code = 1975-2) 0.5 MG/DL See_Comment [Automated message] The system which generated this result transmitted reference range: <=1.2 MG/DL. The reference range was not used to interpret this result as normal/abnormal. BUN (test code = 3094-0) 24 MG/DL See_Comment H [Automated message] The system which generated this result transmitted reference range: 8-23 MG/DL. The reference range was not used to interpret this result as normal/abnormal. CALCIUM (test code = 65795-2) 10.0 MG/DL See_Comment [Automated message] The system which generated this result transmitted reference range: 8.5-10.5 MG/DL. The reference range was not used to interpret this result as normal/abnormal. CALC A/G RATIO (test code = 1759-0) 1.4 RATIO See_Comment [Automated message] The system which generated this result transmitted reference range: 1.0-2.6 RATIO. The reference range was not used to interpret this result as normal/abnormal. CALC BUN/CREAT (test code = 3097-3) 22 RATIO See_Comment [Automated message] The system which generated this result transmitted reference range: 6-28 RATIO. The reference range was not used to interpret this result as normal/abnormal. CALC GLOBULIN (test code = 84608-2) 3.0 G/DL See_Comment [Automated message] The system which generated this result transmitted reference range: 1.9-3.7 G/DL. The reference range was not used to interpret this result as normal/abnormal. CARBON DIOXIDE (test code = 1963-8) 25 MEQ/L See_Comment [Automated message] The system which generated this result transmitted reference range: 19-31 MEQ/L. The reference range was not used to interpret this result as normal/abnormal. CHLORIDE (test code = 2075-0) 102 MEQ/L See_Comment [Automated message] The system which generated this result transmitted reference range: 95-107 MEQ/L. The reference range was not used to interpret this result as normal/abnormal. CREATININE (test code = 2160-0) 1.11 MG/DL See_Comment [Automated message] The system which generated this result transmitted reference range: 0.60-1.30 MG/DL. The reference range was not used to interpret this result as normal/abnormal. eGFR (2020 CKD-EPI) (test code = 92732-0) 52 ML/MIN/1.73 See_Comment L [Automated message] The system which generated this result transmitted reference range: >60 ML/MIN/1.73. The reference range was not used to interpret this result as normal/abnormal. GLUCOSE (test code = 1558-6) 121 MG/DL See_Comment H [Automated message] The system which generated this result transmitted reference range: 70-99 MG/DL. The reference range was not used to interpret this result as normal/abnormal. POTASSIUM (test code = 2823-3) 4.0 MEQ/L See_Comment [Automated message] The system which generated this result transmitted reference range: 3.5-5.4 MEQ/L. The reference range was not used to interpret this result as normal/abnormal. PROTEIN, TOTAL (test code = 2885-2) 7.2 G/DL See_Comment [Automated message] The system which generated this result transmitted reference range: 6.1-8.3 G/DL. The reference range was not used to interpret this result as normal/abnormal. AST (test code = 1920-8) 26 U/L See_Comment [Automated message] The system which generated this result transmitted reference range: 9-40 U/L. The reference range was not used to interpret this result as normal/abnormal. ALT (test code = 1742-6) 30 U/L See_Comment [Automated message] The system which generated this result transmitted reference range: 5-40 U/L. The reference range was not used to interpret this result as normal/abnormal. SODIUM (test code = 2951-2) 141 MEQ/L See_Comment [Automated message] The system which generated this result transmitted reference range: 133-146 MEQ/L. The reference range was not used to interpret this result as normal/abnormal. TSH REFLEX TO FREE T4 (test code = 82050-7) 1.840 UIU/ML See_Comment [Automated message] The system which generated this result transmitted reference range: 0.400-4.100 UIU/ML. The reference range was not used to interpret this result as normal/abnormal. APPEARANCE (test code = 5767-9) CLEAR CLEAR BACTERIA (test code = 02085-1) NONE SEEN NONE SEEN BILIRUBIN (test code = 5770-3) NEGATIVE NEGATIVE CASTS, HYALINE (test code = 78603-2) NONE SEEN NONE-TRACE COLOR (test code = 5778-6) YELLOW YELLOW-STRAW EPITHELIAL CELLS (test code = 60388-0) 0-5 /HPF See_Comment [Automated message] The system which generated this result transmitted reference range: 0-10 /HPF. The reference range was not used to interpret this result as normal/abnormal. GLUCOSE (test code = 5792-7) NEGATIVE NEGATIVE KETONES (test code = 5797-6) NEGATIVE NEGATIVE LEUKOCYTE ESTERASE (test code = 5799-2) 2+ NEGATIVE A NITRITE (test code = 5802-4) NEGATIVE NEGATIVE OCCULT BLOOD (test code = 24887-4) NEGATIVE NEGATIVE pH (test code = 5803-2) 6.5 5.0-9.0 PROTEIN (test code = 25669-3) NEGATIVE NEGATIVE RED BLOOD CELLS (test code = 93944-9) 3-5 /HPF See_Comment A [Automated message] The system which generated this result transmitted reference range: 0-2 /HPF. The reference range was not used to interpret this result as normal/abnormal. SPECIFIC GRAVITY (test code = 5811-5) 1.018 1.005-1.035 UROBILINOGEN (test code = 81785-2) 1.0 MG/DL See_Comment [Automated message] The system which generated this result transmitted reference range: <=2.0 MG/DL. The reference range was not used to interpret this result as normal/abnormal. WHITE BLOOD CELLS (test code = 22702-8) 31-50 /HPF See_Comment A [Automated message] The system which generated this result transmitted reference range: 0-5 /HPF. The reference range was not used to interpret this result as normal/abnormal. CBC W/AUTO [id number] 00:00:00* Test Item Value Reference Range Interpretation Comme nts NUCLEATED RBCS (test code = 47308-4) 0.0 /100 WBC'S See_Comment [Automated messa ge] The system which generated this result transmitted reference range: 0.0 /100 WBC'S. The reference range was not used to interpret this result as normal/abnormal. ABSOLUTE EOSINOPHILS (test code = 67466-6) 0.13 K/UL See_Comment [Automated messa ge] The system which generated this result transmitted reference range: 0.00-0.50 K/UL. The reference range was not used to interpret this result as normal/abnormal. ABSOLUTE LYMPHOCYTES (test code = 84102-9) 2.27 K/UL See_Comment [Automated messa ge] The system which generated this result transmitted reference range: 1.00-4.00 K/UL. The reference range was not used to interpret this result as normal/abnormal. ABSOLUTE MONOCYTES (test code = 58726-2) 0.42 K/UL See_Comment [Automated messa ge] The system which generated this result transmitted reference range: 0.20-1.00 K/UL. The reference range was not used to interpret this result as normal/abnormal. ABSOLUTE NEUTROPHILS (test code = 99095-1) 2.87 K/UL See_Comment [Automated messa ge] The system which generated this result transmitted reference range: 1.50-7.50 K/UL. The reference range was not used to interpret this result as normal/abnormal. BASOPHILS (test code = 66303-0) 0.7 % EOSINOPHILS (test code = 11558-3) 2.3 % HEMATOCRIT (test code = 67567-0) 43.5 % See_Comment [Automated messa ge] The system which generated this result transmitted reference range: 34.0-45.0 %. The reference range was not used to interpret this result as normal/abnormal. HEMOGLOBIN (test code = 718-7) 14.5 G/DL See_Comment [Automated messa ge] The system which generated this result transmitted reference range: 11.5-15.5 G/DL. The reference range was not used to interpret this result as normal/abnormal. LYMPHOCYTES (test code = 79049-8) 39.5 % MCH (test code = 41097-3) 31.5 PG See_Comment [Automated messa ge] The system which generated this result transmitted reference range: 25.0-33.0 PG. The reference range was not used to interpret this result as normal/abnormal. MCHC (test code = 44116-6) 33.3 G/DL See_Comment [Automated messa ge] The system which generated this result transmitted reference range: 31.0-36.0 G/DL. The reference range was not used to interpret this result as normal/abnormal. MCV (test code = 86189-9) 94.6 fL See_Comment [Automated messa ge] The system which generated this result transmitted reference range: 80.0-99.0 fL. The reference range was not used to interpret this result as normal/abnormal. MONOCYTES (test code = 60791-2) 7.3 % NEUTROPHILS (test code = 96930-7) 49.9 % PLATELET COUNT (test code = 22539-2) 244 K/UL See_Comment [Automated messa ge] The system which generated this result transmitted reference range: 130-400 K/UL. The reference range was not used to interpret this result as normal/abnormal. RBC (test code = 57492-3) 4.60 M/UL See_Comment [Automated Applausea ge] The system which generated this result transmitted reference range: 3.80-5.40 M/UL. The reference range was not used to interpret this result as normal/abnormal. RDW (test code = 32908-2) 13.1 % See_Comment [Automated Applausea ge] The system which generated this result transmitted reference range: 11.5-15.0 %. The reference range was not used to interpret this result as normal/abnormal. WBC (test code = 50473-3) 5.8 K/UL See_Comment [Automated Applausea ge] The system which generated this result transmitted reference range: 3.5-11.0 K/UL. The reference range was not used to interpret this result as normal/abnormal. Lipid Panel w/ Chol/HDL [id number] 00:00:00* Test Item Value Reference Range Interpretation Comme nts Cholesterol, Total (test code = 2093-3) 127 mg/dL See_Comment [Automated message] The system which generated this result transmitted reference range: 100-199 mg/dL. The reference range was not used to interpret this result as normal/abnormal. Triglycerides (test code = 2571-8) 99 mg/dL See_Comment [Automated Applausea ge] The system which generated this result transmitted reference range: 0-149 mg/dL. The reference range was not used to interpret this result as normal/abnormal. HDL Cholesterol (test code = 2085-9) 42 mg/dL See_Comment [Automated Applausea ge] The system which generated this result transmitted reference range: >39 mg/dL. The reference range was not used to interpret this result as normal/abnormal. T. Chol/HDL Ratio (test code = 9830-1) 3.0 ratio See_Comment [Automated Applausea ge] The system which generated this result transmitted reference range: 0.0-4.4 ratio. The reference range was not used to interpret this result as normal/abnormal. Microalbumin/Creat Ratio, Random [id number] 00:00:00* Test Item Value Reference Range Interpretation Comme nts Creatinine, Urine (test code = 2161-8) 90.4 mg/dL Not Estab. mg/dL Albumin, Urine (test code = 01784-5) 4.9 ug/mL Not Estab. ug/mL Alb/Creat Ratio (test code = 94282-0) 5 mg/g creat See_Comment [Automated messa ge] The system which generated this result transmitted reference range: 0-29 mg/g creat. The reference range was not used to interpret this result as normal/abnormal. DEXA, BONE DENSITY AXIAL SKELEDEXA, BONE DENSITY AXIAL DOFCL2N SCR ABRIL BILAT W/CAD3D SCR ABRIL BILAT W/CAD Notes Date/Time Note Provider Source 2024-06-27 10:59:12 Benjamin Hernandez, [facility] - 06/27/2024 11:20 AM CDT CHIEF COMPLAINT: RFC TINEA PEDIS, BILATERAL NAIL BIOPSY, RIGHT HALLUX - results S/P RIGHT RETROCALCANEAL EXOSTECTOMY, OCTOBER 20, 2022 HISTORY OF PRESENT ILLNESS: Patient returns for routine pedal evaluation and for nail discoloration Patient states biopsy site is resolved Patient states tinea pedis has much improved with ketoconazole Patient states very satisfied with treatment plan and results following RIGHT retrocalcaneal exostectomy Patient denies pain, infection, injury, open wounds in the bilateral lower extremity __- Patient states she has mild improvements to tinea pedis, however has not been using medication Patient denies pain, infection, injury, wounds __- Patient states she has fully recovered from the surgical procedure very satisfied with the treatment plan results, right foot posterior heel Patient requesting medications for itching and cracking skin on the bottom of the bilateral feet, starting approximately September 29, 2023 Patient also requesting nail biopsy to determine the cause for the thick yellow irregular shape of the right hallux nail Patient denies pain, infection, injury, wounds in the bilateral lower extremity __- Patient states periodically notices scar on the surgical site with tight shoes Patient states very satisfied with results Patient states wound is fully resolved Patient denies pain, infection, injury, wounds Patient states able to ambulate wearing regular shoe gear without interruptions to activities of daily living Patient states pain currently rated 0/10, right posterior heel __- Patient states wound is much improved since previous exam Patient states she has now been changing the dressing as directed Patient has been taking antibiotics as directed, however developed a yeast infection, and requesting medication Patient denies pain, infection, injury, open wounds __- Patient returns for wound evaluation for nonhealing surgical site Patient states she has not been changing the dressing as directed Patient states she has not been taking antibiotics as directed Patient states she has been nonweightbearing using wheelchair, however at times walks with her boot causing pain and pressure at the surgical site Patient denies local and systemic signs of infection Patient states pain currently rated 2/10 on palpation, right posterior heel __- Patient states pain is well controlled without medication Patient has completed taking antibiotics Patient has been nonweightbearing using wheelchair, however at times of rest has been keeping the foot elevated with pressure directly on the surgical site Patient has kept dressing clean dry and intact Patient denies local and systemic signs of infection. Patient denies nausea, vomiting, fever, chills,cough, shortness of breath, chest pain, and calf pain. PHYSICAL EXAM OF THE LOWER EXTREMITY Vascular: (+) 1/4 pitting edema, symmetrical bilateral lower extremity (-) ecchymosis (-) erythema (+) 2/4 pedal pulses, bilateral (+) Capillary Refill time: within normal limits (-) varicosities (+) pedal hair growth Neurological: (+) sensation with 5.07 [place] [employer] monofilament examination to the most distal lower extremity (-) tinel's sign (-) clonus present. Dermatological: (+) nails are thick yellow elongated, bilateral (-) tinea appearance, bilateral plantar feet (+) minimal scar formation, right posterior heel surgical site (-) open wounds (-) signs of infection, (-) ischemic tissue (-) probing to tendon or bone (-) macerations, (-) abscess, (-) drainage, (-) mal odor (-) other primary or secondary lesions (+) normal temperature when compared to contralateral limb (+) normal color, tugor, and elasticity. Musculoskeletal: (-) pain on palpation or with range of motion, bilateral lower extremity (-) palpable retrocalcaneal exostosis (+) good visual correction from surgical procedure (-) pain about the surgical site 5/5 muscle strength to extrinsic pedal muscle groups (-) evidence of compartment syndrome, (-) evidence of deep vein thrombosis X-rays RIGHT foot/calcaneus 11/18/2022: (+) hardware well position, (+) adequate excision of exostosis --- Pathology right foot hallux digit nail biopsy 10/20/2023: (+) Mold. ASSESSMENT: Tinea pedis, bilateral Onychomycosis, right hallux nail --- S/P RIGHT RETROCALCANEAL EXOSTECTOMY, OCTOBER 20, 2022 - resolved. TREATMENT PLAN: - Extensive visit with discussing possible complications without completing medications - surgical site resolved, no further acute plans - tinea - continue 02/07 and 10/20 TOPICAL KETOCONAZOLE, as needed - onychomycosis - reviewed biopsy results and no further open wounds therefore no bandage indicated, use topical antifungal - nails - debrided without complications - Pain - not indicated - surgical Wound - apply vitamin-E for scar reduction, as needed - x-rays - not indicated - Weight bearing - as tolerated in well supportive shoes with 1 inch heel lift - physical therapy - patient defers, previously ordered 12/15 - parking placard - ordered 05/04, to reduce extended ambulation as high risk for recurring injury - work - continue, provided 02/09/2023 - retrocalcaneal surgical site - fully resolved, patient satisfied with treatment plan results, no further treatment indicated - Return 8 weeks for tinea eval Patient advised to report to my clinic or the emergency room immediately with any questions or concerns. Discussion: A detailed discussion was provided to the patient with specific reference to etiology, pathology, alternate treatment options, and prognosis. All risks and complications (including side effects) with each treatment/medication alternative were outlined in detail including but not limited to: Pain, swelling, numbness, loss of function, loss of limb, bleeding, hematoma, scarring, failure to relieve condition, surgery, additional/revisional surgery, reflex sympathetic dystrophy, complex regional pain syndrome, reoccurrence of deformity, joint stiffness, flail toe, bone and/or soft tissue infection, blood clots, pulmonary embolism, possible , delayed or non-healing. X-rays, graphs and drawings were all used to assist with patient comprehension when appropriate. All patients questions were answered and stated they fully understood. No guarantee as to results or outcome of treatment was made. I have discussed with the patient or legally responsible person prior to obtaining consent: the risks, potential benefits and drawbacks, significant alternatives, potential for problems related to recuperation, likelihood of success, and possible results of non-treatment, and the patient or the legally responsible person has agreed to proceed. [id number] 10:59:12 Diagnosis Abnormal foot finding - Prim matthew [id number] 10:59:12 [id number] 10:59:12* Benjamin Hernandez DPM - 06/27/2024 11:20 AM CDT CHIEF COMPLAINT: RFC TINEA PEDIS, BILATERAL NAIL BIOPSY, RIGHT HALLUX - results S/P RIGHT RETROCALCANEAL EXOSTECTOMY, OCTOBER 20, 2022 HISTORY OF PRESENT ILLNESS: Patient returns for routine pedal evaluation and for nail discoloration Patient states biopsy site is resolved Patient states tinea pedis has much improved with ketoconazole Patient states very satisfied with treatment plan and results following RIGHT retrocalcaneal exostectomy Patient denies pain, infection, injury, open wounds in the bilateral lower extremity __- Patient states she has mild improvements to tinea pedis, however has not been using medication Patient denies pain, infection, injury, wounds __- Patient states she has fully recovered from the surgical procedure very satisfied with the treatment plan results, right foot posterior heel Patient requesting medications for itching and cracking skin on the bottom of the bilateral feet, starting approximately September 29, 2023 Patient also requesting nail biopsy to determine the cause for the thick yellow irregular shape of the right hallux nail Patient denies pain, infection, injury, wounds in the bilateral lower extremity __- Patient states periodically notices scar on the surgical site with tight shoes Patient states very satisfied with results Patient states wound is fully resolved Patient denies pain, infection, injury, wounds Patient states able to ambulate wearing regular shoe gear without interruptions to activities of daily living Patient states pain currently rated 0/10, right posterior heel __- Patient states wound is much improved since previous exam Patient states she has now been changing the dressing as directed Patient has been taking antibiotics as directed, however developed a yeast infection, and requesting medication Patient denies pain, infection, injury, open wounds __- Patient returns for wound evaluation for nonhealing surgical site Patient states she has not been changing the dressing as directed Patient states she has not been taking antibiotics as directed Patient states she has been nonweightbearing using wheelchair, however at times walks with her boot causing pain and pressure at the surgical site Patient denies local and systemic signs of infection Patient states pain currently rated 2/10 on palpation, right posterior heel __- Patient states pain is well controlled without medication Patient has completed taking antibiotics Patient has been nonweightbearing using wheelchair, however at times of rest has been keeping the foot elevated with pressure directly on the surgical site Patient has kept dressing clean dry and intact Patient denies local and systemic signs of infection. Patient denies nausea, vomiting, fever, chills,cough, shortness of breath, chest pain, and calf pain. PHYSICAL EXAM OF THE LOWER EXTREMITY Vascular: (+) 1/4 pitting edema, symmetrical bilateral lower extremity (-) ecchymosis (-) erythema (+) 2/4 pedal pulses, bilateral (+) Capillary Refill time: within normal limits (-) varicosities (+) pedal hair growth Neurological: (+) sensation with 5.07 [place] [employer] monofilament examination to the most distal lower extremity (-) tinel's sign (-) clonus present. Dermatological: (+) nails are thick yellow elongated, bilateral (-) tinea appearance, bilateral plantar feet (+) minimal scar formation, right posterior heel surgical site (-) open wounds (-) signs of infection, (-) ischemic tissue (-) probing to tendon or bone (-) macerations, (-) abscess, (-) drainage, (-) mal odor (-) other primary or secondary lesions (+) normal temperature when compared to contralateral limb (+) normal color, tugor, and elasticity. Musculoskeletal: (-) pain on palpation or with range of motion, bilateral lower extremity (-) palpable retrocalcaneal exostosis (+) good visual correction from surgical procedure (-) pain about the surgical site 5/5 muscle strength to extrinsic pedal muscle groups (-) evidence of compartment syndrome, (-) evidence of deep vein thrombosis X-rays RIGHT foot/calcaneus 11/18/2022: (+) hardware well position, (+) adequate excision of exostosis --- Pathology right foot hallux digit nail biopsy 10/20/2023: (+) Mold. ASSESSMENT: Tinea pedis, bilateral Onychomycosis, right hallux nail --- S/P RIGHT RETROCALCANEAL EXOSTECTOMY, OCTOBER 20, 2022 - resolved. TREATMENT PLAN: - Extensive visit with discussing possible complications without completing medications - surgical site resolved, no further acute plans - tinea - continue 02/07 and 10/20 TOPICAL KETOCONAZOLE, as needed - onychomycosis - reviewed biopsy results and no further open wounds therefore no bandage indicated, use topical antifungal - nails - debrided without complications - Pain - not indicated - surgical Wound - apply vitamin-E for scar reduction, as needed - x-rays - not indicated - Weight bearing - as tolerated in well supportive shoes with 1 inch heel lift - physical therapy - patient defers, previously ordered 12/15 - parking placard - ordered 05/04, to reduce extended ambulation as high risk for recurring injury - work - continue, provided 02/09/2023 - retrocalcaneal surgical site - fully resolved, patient satisfied with treatment plan results, no further treatment indicated - Return 8 weeks for tinea eval Patient advised to report to my clinic or the emergency room immediately with any questions or concerns. Discussion: A detailed discussion was provided to the patient with specific reference to etiology, pathology, alternate treatment options, and prognosis. All risks and complications (including side effects) with each treatment/medication alternative were outlined in detail including but not limited to: Pain, swelling, numbness, loss of function, loss of limb, bleeding, hematoma, scarring, failure to relieve condition, surgery, additional/revisional surgery, reflex sympathetic dystrophy, complex regional pain syndrome, reoccurrence of deformity, joint stiffness, flail toe, bone and/or soft tissue infection, blood clots, pulmonary embolism, possible , delayed or non-healing. X-rays, graphs and drawings were all used to assist with patient comprehension when appropriate. All patients questions were answered and stated they fully understood. No guarantee as to results or outcome of treatment was made. I have discussed with the patient or legally responsible person prior to obtaining consent: the risks, potential benefits and drawbacks, significant alternatives, potential for problems related to recuperation, likelihood of success, and possible results of non-treatment, and the patient or the legally responsible person has agreed to proceed. [place] [id number] 10:59:12 [place] [id number] 10:59:12 Diagnosis Abnormal foot finding - Prim [facility]w [id number] 10:59:12 [place] [id number] 10:43:58* Benjamin Hernandez DPM - 04/04/2024 10:10 AM CDT CHIEF COMPLAINT: NAIL BIOPSY, RIGHT HALLUX - results TINEA PEDIS, BILATERAL S/P RIGHT RETROCALCANEAL EXOSTECTOMY, OCTOBER 20, 2022 HISTORY OF PRESENT ILLNESS: Patient returns for routine pedal evaluation and for nail discoloration Patient states biopsy site is resolved Patient states tinea pedis has much improved with ketoconazole Patient states very satisfied with treatment plan and results following RIGHT retrocalcaneal exostectomy Patient denies pain, infection, injury, open wounds in the bilateral lower extremity __- Patient states she has mild improvements to tinea pedis, however has not been using medication Patient denies pain, infection, injury, wounds __- Patient states she has fully recovered from the surgical procedure very satisfied with the treatment plan results, right foot posterior heel Patient requesting medications for itching and cracking skin on the bottom of the bilateral feet, starting approximately September 29, 2023 Patient also requesting nail biopsy to determine the cause for the thick yellow irregular shape of the right hallux nail Patient denies pain, infection, injury, wounds in the bilateral lower extremity __- Patient states periodically notices scar on the surgical site with tight shoes Patient states very satisfied with results Patient states wound is fully resolved Patient denies pain, infection, injury, wounds Patient states able to ambulate wearing regular shoe gear without interruptions to activities of daily living Patient states pain currently rated 0/10, right posterior heel __- Patient states wound is much improved since previous exam Patient states she has now been changing the dressing as directed Patient has been taking antibiotics as directed, however developed a yeast infection, and requesting medication Patient denies pain, infection, injury, open wounds __- Patient returns for wound evaluation for nonhealing surgical site Patient states she has not been changing the dressing as directed Patient states she has not been taking antibiotics as directed Patient states she has been nonweightbearing using wheelchair, however at times walks with her boot causing pain and pressure at the surgical site Patient denies local and systemic signs of infection Patient states pain currently rated 2/10 on palpation, right posterior heel __- Patient states pain is well controlled without medication Patient has completed taking antibiotics Patient has been nonweightbearing using wheelchair, however at times of rest has been keeping the foot elevated with pressure directly on the surgical site Patient has kept dressing clean dry and intact Patient denies local and systemic signs of infection. Patient denies nausea, vomiting, fever, chills,cough, shortness of breath, chest pain, and calf pain. PHYSICAL EXAM OF THE LOWER EXTREMITY Vascular: (+) 1/4 pitting edema, symmetrical bilateral lower extremity (-) ecchymosis (-) erythema (+) 2/4 pedal pulses, bilateral (+) Capillary Refill time: within normal limits (-) varicosities (+) pedal hair growth Neurological: (+) sensation with 5.07 [place] [employer] monofilament examination to the most distal lower extremity (-) tinel's sign (-) clonus present. Dermatological: (+) nails are thick yellow elongated, bilateral (-) tinea appearance, bilateral plantar feet (+) minimal scar formation, right posterior heel surgical site (-) open wounds (-) signs of infection, (-) ischemic tissue (-) probing to tendon or bone (-) macerations, (-) abscess, (-) drainage, (-) mal odor (-) other primary or secondary lesions (+) normal temperature when compared to contralateral limb (+) normal color, tugor, and elasticity. Musculoskeletal: (-) pain on palpation or with range of motion, bilateral lower extremity (-) palpable retrocalcaneal exostosis (+) good visual correction from surgical procedure (-) pain about the surgical site 5/5 muscle strength to extrinsic pedal muscle groups (-) evidence of compartment syndrome, (-) evidence of deep vein thrombosis X-rays RIGHT foot/calcaneus 11/18/2022: (+) hardware well position, (+) adequate excision of exostosis --- Pathology right foot hallux digit nail biopsy 10/20/2023: (+) Mold. ASSESSMENT: Tinea pedis, bilateral Onychomycosis, right hallux nail --- S/P RIGHT RETROCALCANEAL EXOSTECTOMY, OCTOBER 20, 2022 - resolved. TREATMENT PLAN: - Extensive visit with discussing possible complications without completing medications - surgical site resolved, no further acute plans - tinea - continue 02/07 and 10/20 TOPICAL KETOCONAZOLE, as needed - onychomycosis - reviewed biopsy results and no further open wounds therefore no bandage indicated, use topical antifungal - nails - debrided without complications - Pain - not indicated - surgical Wound - apply vitamin-E for scar reduction, as needed - x-rays - not indicated - Weight bearing - as tolerated in well supportive shoes with 1 inch heel lift - physical therapy - patient defers, previously ordered 12/15 - parking placard - ordered 05/04, to reduce extended ambulation as high risk for recurring injury - work - continue, provided 02/09/2023 - retrocalcaneal surgical site - fully resolved, patient satisfied with treatment plan results, no further treatment indicated - Return 8 weeks for tinea eval Patient advised to report to my clinic or the emergency room immediately with any questions or concerns. Discussion: A detailed discussion was provided to the patient with specific reference to etiology, pathology, alternate treatment options, and prognosis. All risks and complications (including side effects) with each treatment/medication alternative were outlined in detail including but not limited to: Pain, swelling, numbness, loss of function, loss of limb, bleeding, hematoma, scarring, failure to relieve condition, surgery, additional/revisional surgery, reflex sympathetic dystrophy, complex regional pain syndrome, reoccurrence of deformity, joint stiffness, flail toe, bone and/or soft tissue infection, blood clots, pulmonary embolism, possible , delayed or non-healing. X-rays, graphs and drawings were all used to assist with patient comprehension when appropriate. All patients questions were answered and stated they fully understood. No guarantee as to results or outcome of treatment was made. I have discussed with the patient or legally responsible person prior to obtaining consent: the risks, potential benefits and drawbacks, significant alternatives, potential for problems related to recuperation, likelihood of success, and possible results of non-treatment, and the patient or the legally responsible person has agreed to proceed. [facility] [id number] 10:43:58 [place] [id number] 10:43:58 Diagnosis Abnormal foot finding - Prim matthew [facility] [id number] 10:43:58 [place] [id number] 10:43:58* Benjamin Hernandez DPM - 04/04/2024 10:10 AM CDT CHIEF COMPLAINT: NAIL BIOPSY, RIGHT HALLUX - results TINEA PEDIS, BILATERAL S/P RIGHT RETROCALCANEAL EXOSTECTOMY, OCTOBER 20, 2022 HISTORY OF PRESENT ILLNESS: Patient returns for routine pedal evaluation and for nail discoloration Patient states biopsy site is resolved Patient states tinea pedis has much improved with ketoconazole Patient states very satisfied with treatment plan and results following RIGHT retrocalcaneal exostectomy Patient denies pain, infection, injury, open wounds in the bilateral lower extremity __- Patient states she has mild improvements to tinea pedis, however has not been using medication Patient denies pain, infection, injury, wounds __- Patient states she has fully recovered from the surgical procedure very satisfied with the treatment plan results, right foot posterior heel Patient requesting medications for itching and cracking skin on the bottom of the bilateral feet, starting approximately September 29, 2023 Patient also requesting nail biopsy to determine the cause for the thick yellow irregular shape of the right hallux nail Patient denies pain, infection, injury, wounds in the bilateral lower extremity __- Patient states periodically notices scar on the surgical site with tight shoes Patient states very satisfied with results Patient states wound is fully resolved Patient denies pain, infection, injury, wounds Patient states able to ambulate wearing regular shoe gear without interruptions to activities of daily living Patient states pain currently rated 0/10, right posterior heel __- Patient states wound is much improved since previous exam Patient states she has now been changing the dressing as directed Patient has been taking antibiotics as directed, however developed a yeast infection, and requesting medication Patient denies pain, infection, injury, open wounds __- Patient returns for wound evaluation for nonhealing surgical site Patient states she has not been changing the dressing as directed Patient states she has not been taking antibiotics as directed Patient states she has been nonweightbearing using wheelchair, however at times walks with her boot causing pain and pressure at the surgical site Patient denies local and systemic signs of infection Patient states pain currently rated 2/10 on palpation, right posterior heel __- Patient states pain is well controlled without medication Patient has completed taking antibiotics Patient has been nonweightbearing using wheelchair, however at times of rest has been keeping the foot elevated with pressure directly on the surgical site Patient has kept dressing clean dry and intact Patient denies local and systemic signs of infection. Patient denies nausea, vomiting, fever, chills,cough, shortness of breath, chest pain, and calf pain. PHYSICAL EXAM OF THE LOWER EXTREMITY Vascular: (+) 1/4 pitting edema, symmetrical bilateral lower extremity (-) ecchymosis (-) erythema (+) 2/4 pedal pulses, bilateral (+) Capillary Refill time: within normal limits (-) varicosities (+) pedal hair growth Neurological: (+) sensation with 5.07 [place] [employer] monofilament examination to the most distal lower extremity (-) tinel's sign (-) clonus present. Dermatological: (+) nails are thick yellow elongated, bilateral (-) tinea appearance, bilateral plantar feet (+) minimal scar formation, right posterior heel surgical site (-) open wounds (-) signs of infection, (-) ischemic tissue (-) probing to tendon or bone (-) macerations, (-) abscess, (-) drainage, (-) mal odor (-) other primary or secondary lesions (+) normal temperature when compared to contralateral limb (+) normal color, tugor, and elasticity. Musculoskeletal: (-) pain on palpation or with range of motion, bilateral lower extremity (-) palpable retrocalcaneal exostosis (+) good visual correction from surgical procedure (-) pain about the surgical site 5/5 muscle strength to extrinsic pedal muscle groups (-) evidence of compartment syndrome, (-) evidence of deep vein thrombosis X-rays RIGHT foot/calcaneus 11/18/2022: (+) hardware well position, (+) adequate excision of exostosis --- Pathology right foot hallux digit nail biopsy 10/20/2023: (+) Mold. ASSESSMENT: Tinea pedis, bilateral Onychomycosis, right hallux nail --- S/P RIGHT RETROCALCANEAL EXOSTECTOMY, OCTOBER 20, 2022 - resolved. TREATMENT PLAN: - Extensive visit with discussing possible complications without completing medications - surgical site resolved, no further acute plans - tinea - continue 02/07 and 10/20 TOPICAL KETOCONAZOLE, as needed - onychomycosis - reviewed biopsy results and no further open wounds therefore no bandage indicated, use topical antifungal - nails - debrided without complications - Pain - not indicated - surgical Wound - apply vitamin-E for scar reduction, as needed - x-rays - not indicated - Weight bearing - as tolerated in well supportive shoes with 1 inch heel lift - physical therapy - patient defers, previously ordered 12/15 - parking placard - ordered 05/04, to reduce extended ambulation as high risk for recurring injury - work - continue, provided 02/09/2023 - retrocalcaneal surgical site - fully resolved, patient satisfied with treatment plan results, no further treatment indicated - Return 8 weeks for tinea eval Patient advised to report to my clinic or the emergency room immediately with any questions or concerns. Discussion: A detailed discussion was provided to the patient with specific reference to etiology, pathology, alternate treatment options, and prognosis. All risks and complications (including side effects) with each treatment/medication alternative were outlined in detail including but not limited to: Pain, swelling, numbness, loss of function, loss of limb, bleeding, hematoma, scarring, failure to relieve condition, surgery, additional/revisional surgery, reflex sympathetic dystrophy, complex regional pain syndrome, reoccurrence of deformity, joint stiffness, flail toe, bone and/or soft tissue infection, blood clots, pulmonary embolism, possible , delayed or non-healing. X-rays, graphs and drawings were all used to assist with patient comprehension when appropriate. All patients questions were answered and stated they fully understood. No guarantee as to results or outcome of treatment was made. I have discussed with the patient or legally responsible person prior to obtaining consent: the risks, potential benefits and drawbacks, significant alternatives, potential for problems related to recuperation, likelihood of success, and possible results of non-treatment, and the patient or the legally responsible person has agreed to proceed. [facility] [id number] 10:43:58 [facility] [id number] 10:43:58 Diagnosis Abnormal foot finding - Prim matthew [facility] [id number] 10:43:58 [facility] [id number] 23:51:56Upcoming Encounters Health Maintenance Due Date Last Done Comments CT Colonography 1950 Colonoscopy 1950 Colorectal Cancer Screening 1949 FIT-DNA 1949 FIT 1949 FOBT 1950 Medicare Annual Wellness (AWV) 1950 Sigmoidoscopy 1949 DTaP/Tdap/Td Vaccines (1 - Tdap) 1968 Zoster Vaccines (1 of 2) 1999 Respiratory Syncytial Virus (RSV) or >=60 (1 - 1-dose 60+ series) 2009 Pneumococcal Vaccine: 65+ Years (1 of 1 - PCV) 2014 Influenza Vaccine (#1) 2024 Mammogram 08/04/2025 08/04/2023, 08/04/2023, 05/25/2022 HIB Vaccines Aged Out No longer eligi ble based on patient's age to complete this topic HPV Vaccines Aged Out No longer eligi ble based on patient's age to complete this topic Hepatitis A Vaccines Aged Out No long er eligible based on patient's age to complete this topic Hepatitis B Vaccines Aged Out No long er eligible based on patient's age to complete this topic IPV Vaccines Aged Out No longer eligi ble based on patient's age to complete this topic Meningococcal Vaccine Aged Out No karmen janel eligible based on patient's age to complete this topic Rotavirus Vaccines Aged Out No longer eligible based on patient's age to complete this topic [facility] [id number] 23:51:56 [place] [id number] 11:04:05 Diagnosis Abnormal foot finding - Prim matthew [facility] [id number] 11:04:05 [place] [id number] 11:04:05* Benjamin Hernandez, ARMIDA - 02/08/2024 9:50 AM CDT CHIEF COMPLAINT: NAIL BIOPSY, RIGHT HALLUX - results TINEA PEDIS, BILATERAL S/P RIGHT RETROCALCANEAL EXOSTECTOMY, OCTOBER 20, 2022 __- Patient states biopsy site is resolved Patient states tinea pedis has much improved with ketoconazole, and requesting refill Patient states very satisfied with treatment plan and results following right retrocalcaneal exostectomy Patient denies pain, infection, injury, open wounds in the bilateral lower extremity __- Patient states she has mild improvements to tinea pedis, however has not been using medication Patient denies pain, infection, injury, wounds __- Patient states she has fully recovered from the surgical procedure very satisfied with the treatment plan results, right foot posterior heel Patient requesting medications for itching and cracking skin on the bottom of the bilateral feet, starting approximately September 29, 2023 Patient also requesting nail biopsy to determine the cause for the thick yellow irregular shape of the right hallux nail Patient denies pain, infection, injury, wounds in the bilateral lower extremity __- Patient states periodically notices scar on the surgical site with tight shoes Patient states very satisfied with results Patient states wound is fully resolved Patient denies pain, infection, injury, wounds Patient states able to ambulate wearing regular shoe gear without interruptions to activities of daily living Patient states pain currently rated 0/10, right posterior heel __- Patient states wound is much improved since previous exam Patient states she has now been changing the dressing as directed Patient has been taking antibiotics as directed, however developed a yeast infection, and requesting medication Patient denies pain, infection, injury, open wounds __- Patient returns for wound evaluation for nonhealing surgical site Patient states she has not been changing the dressing as directed Patient states she has not been taking antibiotics as directed Patient states she has been nonweightbearing using wheelchair, however at times walks with her boot causing pain and pressure at the surgical site Patient denies local and systemic signs of infection Patient states pain currently rated 2/10 on palpation, right posterior heel __- Patient states pain is well controlled without medication Patient has completed taking antibiotics Patient has been nonweightbearing using wheelchair, however at times of rest has been keeping the foot elevated with pressure directly on the surgical site Patient has kept dressing clean dry and intact Patient denies local and systemic signs of infection. Patient denies nausea, vomiting, fever, chills,cough, shortness of breath, chest pain, and calf pain. PHYSICAL EXAM OF THE LOWER EXTREMITY Vascular: (+) 1/4 pitting edema, symmetrical bilateral lower extremity (-) ecchymosis (-) erythema (+) 2/4 pedal pulses, bilateral (+) Capillary Refill time: within normal limits (-) varicosities (+) pedal hair growth Neurological: (+) sensation with 5.07 [place] [employer] monofilament examination to the most distal lower extremity (-) tinel's sign (-) clonus present. Dermatological: (+) nails are thick yellow elongated, bilateral (+) mild tinea appearance, bilateral plantar feet (+) minimal scar formation, right posterior heel surgical site (-) open wounds (-) signs of infection, (-) ischemic tissue (-) probing to tendon or bone (-) macerations, (-) abscess, (-) drainage, (-) mal odor (-) other primary or secondary lesions (+) normal temperature when compared to contralateral limb (+) normal color, tugor, and elasticity. Musculoskeletal: (-) pain on palpation or with range of motion, bilateral lower extremity (-) palpable retrocalcaneal exostosis (+) good visual correction from surgical procedure (-) pain about the surgical site 5/5 muscle strength to extrinsic pedal muscle groups (-) evidence of compartment syndrome, (-) evidence of deep vein thrombosis X-rays RIGHT foot/calcaneus 11/18/2022: (+) hardware well position, (+) adequate excision of exostosis --- Pathology right foot hallux digit nail biopsy 10/20/2023: (+) Mold. ASSESSMENT: tinea pedis, bilateral Onychomycosis, right hallux nail --- S/P RIGHT RETROCALCANEAL EXOSTECTOMY, OCTOBER 20, 2022 - resolved. TREATMENT PLAN: - Extensive visit with discussing possible complications without completing medications - surgical site resolved, no further acute plans - tinea - REFILLED 02/07 and 10/20 TOPICAL KETOCONAZOLE - onychomycosis - reviewed biopsy results and no further open wounds therefore no bandage indicated, use topical antifungal - Pain - Well controlled without medications - surgical Wound - apply vitamin-E for scar reduction, as needed - Dressing - not indicated - x-rays - not indicated - Weight bearing - as tolerated in well supportive shoes with 1 inch heel lift - physical therapy - patient defers, previously ordered 12/15 - parking placard - ordered 05/04, to reduce extended ambulation as high risk for recurring injury - work - continue, provided 02/09/2023 - retrocalcaneal surgical site - fully resolved, patient satisfied with treatment plan results, no further treatment indicated - Return 8 weeks for tinea eval Patient advised to report to my clinic or the emergency room immediately with any questions or concerns. Discussion: A detailed discussion was provided to the patient with specific reference to etiology, pathology, alternate treatment options, and prognosis. All risks and complications (including side effects) with each treatment/medication alternative were outlined in detail including but not limited to: Pain, swelling, numbness, loss of function, loss of limb, bleeding, hematoma, scarring, failure to relieve condition, surgery, additional/revisional surgery, reflex sympathetic dystrophy, complex regional pain syndrome, reoccurrence of deformity, joint stiffness, flail toe, bone and/or soft tissue infection, blood clots, pulmonary embolism, possible , delayed or non-healing. X-rays, graphs and drawings were all used to assist with patient comprehension when appropriate. All patients questions were answered and stated they fully understood. No guarantee as to results or outcome of treatment was made. I have discussed with the patient or legally responsible person prior to obtaining consent: the risks, potential benefits and drawbacks, significant alternatives, potential for problems related to recuperation, likelihood of success, and possible results of non-treatment, and the patient or thelegally responsible person has agreed to proceed. [facility]2024-07-02 11:04:05Upcoming Encounters Health Maintenance Due Date Last Done Comments CT Colonography 1949 Colonoscopy 1949 Colorectal Cancer Screening 1949 FIT-DNA 1949 FIT 1949 FOBT 1950 Medicare Annual Wellness (AWV) 1949 Sigmoidoscopy 1949 DTaP/Tdap/Td Vaccines (1 - Tdap) 1968 Zoster Vaccines (1 of 2) 1999 Respiratory Syncytial Virus (RSV) or >=60 (1 - 1-dose 60+ series) 2009 Pneumococcal Vaccine: 65+ Years (1 of 1 - PCV) 2014 Influenza Vaccine (#1) 2024 Mammogram 08/04/2025 08/04/2023, 08/04/2023, 05/25/2022 HIB Vaccines Aged Out No longer eligi ble based on patient's age to complete this topic HPV Vaccines Aged Out No longer eligi ble based on patient's age to complete this topic Hepatitis A Vaccines Aged Out No long er eligible based on patient's age to complete this topic Hepatitis B Vaccines Aged Out No long er eligible based on patient's age to complete this topic IPV Vaccines Aged Out No longer eligi ble based on patient's age to complete this topic Meningococcal Vaccine Aged Out No karmen janel eligible based on patient's age to complete this topic Rotavirus Vaccines Aged Out No longer eligible based on patient's age to complete this topic [id number] 11:04:05 Diagnosis Abnormal foot finding - Prim matthew [id number] 11:04:05 [id number] 11:04:05* Benjamin Hernandez, ARMIDA - 02/08/2024 9:50 AM CDT CHIEF COMPLAINT: NAIL BIOPSY, RIGHT HALLUX - results TINEA PEDIS, BILATERAL S/P RIGHT RETROCALCANEAL EXOSTECTOMY, OCTOBER 20, 2022 __- Patient states biopsy site is resolved Patient states tinea pedis has much improved with ketoconazole, and requesting refill Patient states very satisfied with treatment plan and results following right retrocalcaneal exostectomy Patient denies pain, infection, injury, open wounds in the bilateral lower extremity __- Patient states she has mild improvements to tinea pedis, however has not been using medication Patient denies pain, infection, injury, wounds __- Patient states she has fully recovered from the surgical procedure very satisfied with the treatment plan results, right foot posterior heel Patient requesting medications for itching and cracking skin on the bottom of the bilateral feet, starting approximately September 29, 2023 Patient also requesting nail biopsy to determine the cause for the thick yellow irregular shape of the right hallux nail Patient denies pain, infection, injury, wounds in the bilateral lower extremity __- Patient states periodically notices scar on the surgical site with tight shoes Patient states very satisfied with results Patient states wound is fully resolved Patient denies pain, infection, injury, wounds Patient states able to ambulate wearing regular shoe gear without interruptions to activities of daily living Patient states pain currently rated 0/10, right posterior heel __- Patient states wound is much improved since previous exam Patient states she has now been changing the dressing as directed Patient has been taking antibiotics as directed, however developed a yeast infection, and requesting medication Patient denies pain, infection, injury, open wounds __- Patient returns for wound evaluation for nonhealing surgical site Patient states she has not been changing the dressing as directed Patient states she has not been taking antibiotics as directed Patient states she has been nonweightbearing using wheelchair, however at times walks with her boot causing pain and pressure at the surgical site Patient denies local and systemic signs of infection Patient states pain currently rated 2/10 on palpation, right posterior heel __- Patient states pain is well controlled without medication Patient has completed taking antibiotics Patient has been nonweightbearing using wheelchair, however at times of rest has been keeping the foot elevated with pressure directly on the surgical site Patient has kept dressing clean dry and intact Patient denies local and systemic signs of infection. Patient denies nausea, vomiting, fever, chills,cough, shortness of breath, chest pain, and calf pain. PHYSICAL EXAM OF THE LOWER EXTREMITY Vascular: (+) 1/4 pitting edema, symmetrical bilateral lower extremity (-) ecchymosis (-) erythema (+) 2/4 pedal pulses, bilateral (+) Capillary Refill time: within normal limits (-) varicosities (+) pedal hair growth Neurological: (+) sensation with 5.07 [place] [employer] monofilament examination to the most distal lower extremity (-) tinel's sign (-) clonus present. Dermatological: (+) nails are thick yellow elongated, bilateral (+) mild tinea appearance, bilateral plantar feet (+) minimal scar formation, right posterior heel surgical site (-) open wounds (-) signs of infection, (-) ischemic tissue (-) probing to tendon or bone (-) macerations, (-) abscess, (-) drainage, (-) mal odor (-) other primary or secondary lesions (+) normal temperature when compared to contralateral limb (+) normal color, tugor, and elasticity. Musculoskeletal: (-) pain on palpation or with range of motion, bilateral lower extremity (-) palpable retrocalcaneal exostosis (+) good visual correction from surgical procedure (-) pain about the surgical site 5/5 muscle strength to extrinsic pedal muscle groups (-) evidence of compartment syndrome, (-) evidence of deep vein thrombosis X-rays RIGHT foot/calcaneus 11/18/2022: (+) hardware well position, (+) adequate excision of exostosis --- Pathology right foot hallux digit nail biopsy 10/20/2023: (+) Mold. ASSESSMENT: tinea pedis, bilateral Onychomycosis, right hallux nail --- S/P RIGHT RETROCALCANEAL EXOSTECTOMY, OCTOBER 20, 2022 - resolved. TREATMENT PLAN: - Extensive visit with discussing possible complications without completing medications - surgical site resolved, no further acute plans - tinea - REFILLED 02/07 and 10/20 TOPICAL KETOCONAZOLE - onychomycosis - reviewed biopsy results and no further open wounds therefore no bandage indicated, use topical antifungal - Pain - Well controlled without medications - surgical Wound - apply vitamin-E for scar reduction, as needed - Dressing - not indicated - x-rays - not indicated - Weight bearing - as tolerated in well supportive shoes with 1 inch heel lift - physical therapy - patient defers, previously ordered 12/15 - parking placard - ordered 05/04, to reduce extended ambulation as high risk for recurring injury - work - continue, provided 02/09/2023 - retrocalcaneal surgical site - fully resolved, patient satisfied with treatment plan results, no further treatment indicated - Return 8 weeks for tinea eval Patient advised to report to my clinic or the emergency room immediately with any questions or concerns. Discussion: A detailed discussion was provided to the patient with specific reference to etiology, pathology, alternate treatment options, and prognosis. All risks and complications (including side effects) with each treatment/medication alternative were outlined in detail including but not limited to: Pain, swelling, numbness, loss of function, loss of limb, bleeding, hematoma, scarring, failure to relieve condition, surgery, additional/revisional surgery, reflex sympathetic dystrophy, complex regional pain syndrome, reoccurrence of deformity, joint stiffness, flail toe, bone and/or soft tissue infection, blood clots, pulmonary embolism, possible , delayed or non-healing. X-rays, graphs and drawings were all used to assist with patient comprehension when appropriate. All patients questions were answered and stated they fully understood. No guarantee as to results or outcome of treatment was made. I have discussed with the patient or legally responsible person prior to obtaining consent: the risks, potential benefits and drawbacks, significant alternatives, potential for problems related to recuperation, likelihood of success, and possible results of non-treatment, and the patient or thelegally responsible person has agreed to proceed. [facility] [id number] 11:04:05Upcoming Encounters Health Maintenance Due Date Last Done Comments CT Colonography 1950 Colonoscopy 1950 Colorectal Cancer Screening 1950 FIT-DNA 1950 FIT 1950 FOBT 1950 Medicare Annual Wellness (AWV) 1950 Sigmoidoscopy 1950 DTaP/Tdap/Td Vaccines (1 - Tdap) 1968 Zoster Vaccines (1 of 2) 1999 Respiratory Syncytial Virus (RSV) or >=60 (1 - 1-dose 60+ series) 2009 Pneumococcal Vaccine: 65+ Years (1 of 1 - PCV) 2014 Influenza Vaccine (#1) 2024 Mammogram 08/04/2025 08/04/2023, 08/04/2023, 05/25/2022 HIB Vaccines Aged Out No longer eligi ble based on patient's age to complete this topic HPV Vaccines Aged Out No longer eligi ble based on patient's age to complete this topic Hepatitis A Vaccines Aged Out No long er eligible based on patient's age to complete this topic Hepatitis B Vaccines Aged Out No long er eligible based on patient's age to complete this topic IPV Vaccines Aged Out No longer eligi ble based on patient's age to complete this topic Meningococcal Vaccine Aged Out No karmen janel eligible based on patient's age to complete this topic Rotavirus Vaccines Aged Out No longer eligible based on patient's age to complete this topic [facility] [id number] 16:50:38* [facility] [id number] 16:50:38Upcoming Encounters Health Maintenance Due Date Last Done Comments CT Colonography 1950 Colonoscopy 1950 Colorectal Cancer Screening 1950 FIT-DNA 1950 FIT 1950 FOBT 1950 Medicare Annual Wellness (AWV) 1950 Sigmoidoscopy 1950 DTaP/Tdap/Td Vaccines (1 - Tdap) 1968 Zoster Vaccines (1 of 2) 1999 Respiratory Syncytial Virus (RSV) or >=60 (1 - 1-dose 60+ series) 2009 Pneumococcal Vaccine: 65+ Years (1 of 1 - PCV) 2014 Influenza Vaccine (Season Ended) 2024 Mammogram 08/04/2025 08/04/2023, 08/04/2023, 05/25/2022 HIB Vaccines Aged Out No longer eligi ble based on patient's age to complete this topic HPV Vaccines Aged Out No longer eligi ble based on patient's age to complete this topic Hepatitis A Vaccines Aged Out No long er eligible based on patient's age to complete this topic Hepatitis B Vaccines Aged Out No long er eligible based on patient's age to complete this topic IPV Vaccines Aged Out No longer eligi ble based on patient's age to complete this topic Meningococcal Vaccine Aged Out No karmen janel eligible based on patient's age to complete this topic Rotavirus Vaccines Aged Out No longer eligible based on patient's age to complete this topic [id number] 16:50:38 [place] [id number] 16:50:22 Medication was corrected to apply to office to affected area on the feet every 12 hours [id number] 14:28:46* [place] [id number] 14:28:46Upcoming Encounters Health Maintenance Due Date Last Done Comments CT Colonography 1950 Colonoscopy 1950 Colorectal Cancer Screening 1950 FIT-DNA 1950 FIT 1950 FOBT 1950 Medicare Annual Wellness (AWV) 1950 Sigmoidoscopy 1950 DTaP/Tdap/Td Vaccines (1 - Tdap) 1968 Zoster Vaccines (1 of 2) 1999 Respiratory Syncytial Virus (RSV) or >=60 (1 - 1-dose 60+ series) 2009 Pneumococcal Vaccine: 65+ Years (1 of 1 - PCV) 2014 Influenza Vaccine (Season Ended) 2024 Mammogram 08/04/2025 08/04/2023, 08/04/2023, 05/25/2022 HIB Vaccines Aged Out No longer eligi ble based on patient's age to complete this topic HPV Vaccines Aged Out No longer eligi ble based on patient's age to complete this topic Hepatitis A Vaccines Aged Out No long er eligible based on patient's age to complete this topic Hepatitis B Vaccines Aged Out No long er eligible based on patient's age to complete this topic IPV Vaccines Aged Out No longer eligi ble based on patient's age to complete this topic Meningococcal Vaccine Aged Out No karmen janel eligible based on patient's age to complete this topic Rotavirus Vaccines Aged Out No longer eligible based on patient's age to complete this topic Pete [id number] 14:28:46 Pete [id number] 14:28:39 Apply 2 oz. to affected areas of foot every [facility] hours [facility]
[2024-12-14] MEDS ORDERED: HYDROCODONE/APAP 5/325 MG TAB ONE (17:56)
[2024-12-14] MEDS ORDERED: KETOROLAC 30 MG/ML INJ ONE (17:56)
--- NOTE | 2024-12-14 18:15 | EDPHYS ---
Physician Documentation [facility] Name: Michelle Escoto Age: 74 yrs Sex: Female : 1950 Arrival Date: 12/14/2024 Time: 16:52 Bed 13 Private MD: ED Physician Lesa Cardoso Historical: - Allergies: 12/14 17:05 No Known Allergies; ld1 - PMHx: 17:05 Hyperlipidemia; Hypertension; ld1 - Immunization history:: Adult Immunizations up to date. - Infectious Disease History:: Denies. - Social history:: Smoking status: Patient denies any tobacco usage or history of. Vital Signs: 17:05 Pulse 54; Resp 18; Temp 97.3(O); Pulse Ox 96% on R/A; Weight 90.72 kg; Height 5 ft. 0 ld1 in. ; Pain 9/10; 17:09 BP 131 / 73; ld1 17:05 Body Mass Index 39.06 (90.72 kg, 152.4 cm) ld1 17:05 Pain Scale: Adult ld1 MDM: 17:13 Medical Screening Exam initiated gb1 Administered Medications: 18:11 Drug: Ketorolac IVP 30 mg IVP once {Note: left deltoid.} Route: IVP; Site: Other; [facility] 18:37 Follow up: Response: No adverse reaction [facility] 18:11 Drug: HYDROcodone-acetaminophen PO 5 mg-325 mg 1 tabs PO once Route: PO; [facility] 18:37 Follow up: Response: No adverse reaction; RASS: Alert and Calm (0) [facility] Disposition Summary: 12/14/24 18:15 Discharge Ordered Notes: Location: Home gb1 Problem: an acute exacerbation gb1 Symptoms: have improved gb1 Condition: Stable gb1 Diagnosis - Lumbago with sciatica, left side gb1 Followup: gb1 - With: Private Physician - When: - Reason: Re-evaluation by your physician Discharge Instructions: - Discharge Summary Sheet gb1 - Sciatica gb1 Forms: - Medication Reconciliation Form gb1 - Antibiotic Education gb1 - Prescription Opioid Use gb1 - Patient Portal Instructions gb1 - Leadership Thank You Letter gb1 Prescriptions: - Medrol (Maximo) 4 mg Oral Tablets, Dose Pack - take 1 tablet ORAL route as directed - follow package instructions; 1 packet; gb1 Refills: 0, Product Selection Permitted Signatures: Kristie Higgins, RN RN ld1 Lucie Patterson, RN RN kc6 Lesa Cardoso MD MD gb1
--- NOTE | 2024-12-14 18:15 | ER ---
Nurse's Notes [facility] Name: Michelle Escoto Age: 74 yrs Sex: Female : 1950 Arrival Date: 12/14/2024 Time: 16:52 Bed 13 Private MD: Diagnosis: Lumbago with sciatica, left side Presentation: 12/14 17:05 Chief complaint: Patient states: lower back pain - radiating down left leg X 1 week. Pt ld1 reports carrying heavy basket of towels at work. Coronavirus screen: At this time, the client does not indicate any symptoms associated with coronavirus-19. Ebola Screen: No symptoms or risks identified at this time. Initial Sepsis Screen: Does the patient meet any 2 criteria? No. Patient's initial sepsis screen is negative. Does the patient have a suspected source of infection? No. Patient's initial sepsis screen is negative. Risk Assessment: Do you want to hurt yourself or someone else? Patient reports no desire to harm self or others. Onset of symptoms was December 14, 2024. 17:05 Method Of Arrival: Ambulatory ld1 17:05 Acuity: RALPH 4 ld1 Triage Assessment: 17:05 General: Appears in no apparent distress. comfortable, Behavior is calm, cooperative, ld1 appropriate for age. Pain: Complains of pain in low back area Pain does not radiate. Pain currently is 8 out of 10 on a pain scale. Quality of pain is described as throbbing, Pain began suddenly, Is continuous. EENT: No signs and/or symptoms were reported regarding the EENT system. Neuro: Level of Consciousness is awake, alert, obeys commands, Oriented to person, place, time, situation. Cardiovascular: Capillary refill < 3 seconds Patient's skin is warm and dry. Respiratory: Airway is patent Respiratory effort is even, unlabored. GI: Abdomen is round non-distended. : No signs and/or symptoms were reported regarding the genitourinary system. Derm: No signs and/or symptoms reported regarding the dermatologic system. Musculoskeletal: No signs and/or symptoms reported regarding the musculoskeletal system. Historical: - Allergies: 17:05 No Known Allergies; ld1 - PMHx: 17:05 Hyperlipidemia; Hypertension; ld1 - Immunization history:: Adult Immunizations up to date. - Infectious Disease History:: Denies. - Social history:: Smoking status: Patient denies any tobacco usage or history of. Screenin:15 [facility] ED Fall Risk Assessment (Adult) History of falling in the last 3 months, kc6 including since admission No falls in past 3 months (0 pts) Confusion or Disorientation No (0 pts) Intoxicated or Sedated No (0 pts) Impaired Gait No (0 pts) Mobility Assist Device Used No (0 pt) Altered Elimination No (0 pt) Score/Fall Risk Level 0 - 2 = Low Risk Oriented to surroundings, Maintained a safe environment, Educated pt \T\ family on fall prevention, incl call for assistance when getting out of bed. Abuse screen: Denies threats or abuse. Denies injuries from another. Nutritional screening: No deficits noted. Tuberculosis screening: No symptoms or risk factors identified. Assessment: 17:15 General: Appears in no apparent distress. uncomfortable, obese, well groomed, well kc6 developed, Behavior is calm, cooperative, appropriate for age. Pain: Complains of pain in left leg and low back area. Neuro: Level of Consciousness is awake, alert, obeys commands, Oriented to person, place, time, situation, Appropriate for age. Cardiovascular: Capillary refill < 3 seconds. Respiratory: Airway is patent Trachea midline Respiratory effort is even, unlabored, Respiratory pattern is regular, symmetrical. GI: No signs and/or symptoms were reported involving the gastrointestinal system. : No signs and/or symptoms were reported regarding the genitourinary system. EENT: No signs and/or symptoms were reported regarding the EENT system. Derm: No signs and/or symptoms reported regarding the dermatologic system. Skin is intact, is healthy with good turgor, Skin is pink, warm \T\ dry. Musculoskeletal: Circulation, motion, and sensation intact. Range of motion: intact in all extremities. 18:15 Reassessment: Patient appears in no apparent distress at this time. No changes from kc6 previously documented assessment. Patient and/or family updated on plan of care and expected duration. Pain level reassessed. Patient is alert, oriented x 3, equal unlabored respirations, skin warm/dry/pink. 18:38 Reassessment: pt left before signing discharge paper and obtaining prescription. kc6 Vital Signs: 17:05 Pulse 54; Resp 18; Temp 97.3(O); Pulse Ox 96% on R/A; Weight 90.72 kg; Height 5 ft. 0 ld1 in. ; Pain 9/10; 17:09 BP 131 / 73; ld1 17:05 Body Mass Index 39.06 (90.72 kg, 152.4 cm) ld1 17:05 Pain Scale: Adult ld1 ED Course: 16:55 Patient arrived in ED. im 17:05 Arm band placed on right wrist. ld1 17:08 Triage completed. ld1 17:13 Lesa Cardoso MD is Attending Physician. gb1 17:15 Patient has correct armband on for positive identification. Bed in low position. Call kc6 light in reach. Side rails up X 1. Adult w/ patient. Pulse ox on. NIBP on. Door closed. Noise minimized. Lights dimmed. Pillow given. Verbal reassurance given. 17:18 Lucie Patterson, RN is Primary Nurse. kc6 18:37 No provider procedures requiring assistance completed. Patient did not have IV access kc6 during this emergency room visit. Administered Medications: 18:11 Drug: Ketorolac IVP 30 mg IVP once {Note: left deltoid.} Route: IVP; Site: Other; kc6 18:37 Follow up: Response: No adverse reaction kc6 18:11 Drug: HYDROcodone-acetaminophen PO 5 mg-325 mg 1 tabs PO once Route: PO; kc6 18:37 Follow up: Response: No adverse reaction; RASS: Alert and Calm (0) kc6 Medication: 18:38 VIS not applicable for this client. kc6 Outcome: 18:15 Discharge ordered by . gb1 18:38 Discharged to home ambulatory, with significant other, kc6 18:38 Condition: good 18:39 Patient left the ED. kc6 Signatures: Kristie Higgins RN RN ld1 Lucie Patterson RN RN kc6 Nelsy Mcwilliams Lesa Cardoso MD MD gb1
[2024-12-14 18:44] VITALS: TEMP 97.3; O2SAT 96
[2024-12-14 18:46] VITALS: BP 131/73
== END 2024-12-14 18:39 | disposition home or self-care (01) ==
LOC: ER 16:52
DX: M54.42 Lumbago with sciatica, left side (principal)
CPT/HCPCS: 96374; 99284